=== PATIENT | female | born 1985 | race Caucasian/White ===

== ENCOUNTER 2016-10-18 21:49 | Emergency (ER) | payer OTHER ==
[2016-10-18 21:58] VITALS: TEMP 97.7; BMI 26.6
[2016-10-18 22:48] LABS: BASOPHIL 0.4 % (0-2.0); EOSINOPHIL 0.9 % (0-4.5); MCH 29.2 pg (25.7-33.7); MCHC 34.1 g/dl (32.0-36.0); MEAN CELL VOLUME 85.7 fl (80-96); MEAN PLT VOLUME 9.3 fl (7.5-11.1); NEUTROPHILS 66.4 % (42.8-82.8); PLATELET COUNT 256 K/MM3 (134-434); RDW 13.3 % (11.6-15.6); WHITE BLOOD COUNT 10.1 K/mm3 (4.0-10.0)
[2016-10-18 23:08] LABS: URINE APPEARANCE CLEAR; URINE BILIRUBIN NEGATIVE (NEGATIVE); URINE COLOR COLORLESS; URINE GLUCOSE (UA) NEGATIVE (NEGATIVE); URINE KETONE NEGATIVE (NEGATIVE); URINE NITRITE NEGATIVE (NEGATIVE); URINE PROTEIN NEGATIVE (NEGATIVE); URINE UROBILINOGEN NEGATIVE E.U./dl (0.2-1.0)
[2016-10-18 23:11] LABS: URINE BLOOD 2+ (NEGATIVE); URINE LEUK ESTERASE TRACE (NEGATIVE)
[2016-10-18 23:12] LABS: ANION GAP 12 (8-16); BILIRUBIN,TOTAL 0.2 mg/dL (0.2-1.0); CALCIUM 8.7 mg/dL (8.5-10.1); CO2 24 mmol/L (21-32); CREATININE 0.8 mg/dL (0.55-1.02); GLUCOSE,RANDOM 88 mg/dL (74-106); SGOT/AST 8 U/L (15-37); SGPT/ALT 18 U/L (12-78)
[2016-10-18 23:16] LABS: URINE BACTERIA RARE /hpf (NONE SEEN); URINE RBC <1 /hpf (0-3); URINE WBC 1 /hpf (3-5)
[2016-10-18 23:28] LABS: ALK PHOS 63 U/L (45-117)
--- NOTE | 2016-10-19 02:47 | PDOC ---
History of Present Illness - General Chief Complaint: Vaginal Bleeding Stated Complaint: VAGINAL BLEEDING Time Seen by Provider: 10/18/16 23:08 - History of Present Illness Initial Comments: 10/19/16 03:20 CHIEF COMPLAINT: vag bldg HISTORY OF PRESENT ILLNESS: A 31-year-old female presents to ED with vaginal bleeding since today. Patient states she is unsure how many weeks she has but her last menstrual period was in July, she states she has irregular periods so "I don't really know when I got ." Patient also states that she had a little bit of cramping this afternoon when she went to the bathroom she noticed some clots. She states the bleeding resolved little bit but she still continued to have bleeding throughout the day. No vomiting, diarrhea, fever, chills. No recent travel or sick contacts. PAST MEDICAL HISTORY: Denies past medical history FAMILY HISTORY: Denies SOCIAL HISTORY: Denies tobacco, alcohol, illicit drug use. SURGICAL HISTORY: Denies ALLERGIES: PCN REVIEW OF SYSTEMS General/Constitutional: Denies fever or chills. Denies weakness, weight change. HEENT: Denies change in vision. Denies ear pain or discharge. Denies sore throat. Cardiovascular: Denies chest pain or shortness of breath. Respiratory: Denies cough, wheezing, or hemoptysis. Gastrointestinal: Denies nausea, vomiting, diarrhea or constipation. Denies rectal bleeding. Genitourinary: Bleeding. Denies dysuria, frequency, or change in urination. Musculoskeletal: Denies joint or muscle swelling or pain. Denies neck or back pain. Skin and breasts: Denies rash or easy bruising. PHYSICAL EXAM General Appearance: Well-appearing, appropriately dressed. No apparent distress , no intoxication. HEENT: EOMI, PERRLA, normal ENT inspection, normal voice, TMs normal, pharynx normal. No conjunctival pallor. No photophobia, scleral icterus. Neck: Supple. Trachea midline. No tenderness, rigidity, carotid bruit, stridor , lymphadenopathy, or thyromegaly. Respiratory/Chest: Lungs CTAB. No shortness of breath, chest tenderness, respiratory distress, accessory muscle use. No crackles, rales, rhonchi, stridor , wheezing, dullness Cardiovascular: RRR. S1, S2. No JVD, murmur, bradycardia, tachycardia. Vascular Pulses: Dorsalis-Pedis (R): 2+, Dorsalis-Pedis (L): 2+ Gastrointestinal/Abdominal: Normal bowel sounds. Abdomen soft, non-distended. No tenderness or rebound tenderness. No organomegaly, pulsatile mass, guarding , hernia, hepatomegaly, splenomegaly. Pelvic: External genitalia normal without lesions. Vaginal vault with bloody discharge, 1 clot expelled during exam. Cervix is long and closed. No cervical motion tenderness. Uterus is nontender and normal in size. Adnexa are nontender and without masses. Lymphatic: No adenopathy, tenderness. Musculoskeletal/Extremities: Normal inspection. FROM of all extremities, normal capillary refill. Pelvis Stable. No CVA tenderness. No tenderness to extremities, pedal edema, swelling, erythema or deformity. Integumentary: Appropriate color, dry, warm. No cyanosis, erythema, jaundice or rash Neurologic: mill tender warm up II-XII intact. Fully oriented, alert. Appropriate mood/affect. Motor strength 5/5. No appreciable EOM palsy, facial droop or sensory deficit. 10/19/16 03:27 Past History - Past Medical History Allergies/Adverse Reactions: Allergies Allergy/AdvReac Type Severity Reaction Status Date / Time Penicillins Allergy Verified 10/18/16 21:54 Home Medications: Ambulatory Orders Levothyroxine [Synthroid -] 50 mcg PO DAILY 10/18/16 Asthma: No Cancer: No Cardiac Disorders: No Diabetes: No HTN: No Seizures: No Thyroid Disease: Yes - Surgical History Cholecystectomy: Yes - Reproductive History Is Patient Now?: Yes - Psycho/Social/Smoking Cessation Hx Anxiety: No Suicidal Ideation: No Smoking Status: No Smoking History: Never smoked Have you smoked in the past 12 months: No Number of Cigarettes Smoked Daily: 0 Hx Alcohol Use: No Drug/Substance Use Hx: No Substance Use Type: None Hx Substance Use Treatment: No *Physical Exam - Vital Signs Last Vital Signs Temp Pulse Resp BP Pulse Ox 97.7 F 86 18 107/78 98 10/18/16 21:57 10/18/16 21:57 10/18/16 21:57 10/18/16 21:57 10/18/16 21:57 ED Treatment Course - LABORATORY CBC & Chemistry Diagram: 10/18/16 22:41 10/18/16 22:41 - ADDITIONAL ORDERS Additional order review: Laboratory Results 10/18/16 10/18/16 10/18/16 22:41 22:31 22:31 Sodium 140 Potassium 3.7 Chloride 104 Carbon Dioxide 24 Anion Gap 12 BUN 16 D Creatinine 0.8 D Creat Clearance w eGFR > 60 Random Glucose 88 D Calcium 8.7 Total Bilirubin 0.2 D AST 8 L D ALT 18 D Alkaline Phosphatase 63 D Total Protein 7.0 Albumin 4.0 Beta HCG, Quant 4863.4 Urine Color Colorless Urine Appearance Clear Urine pH 6.0 Ur Specific [place] 1.004 Urine Protein Negative Urine Glucose (UA) Negative Urine Ketones Negative Urine Blood 2+ H Urine Nitrite Negative Urine Bilirubin Negative Urine Urobilinogen Negative Ur Leukocyte Esterase Trace H D Urine RBC <1 Urine WBC 1 Ur Epithelial Cells Rare Urine Bacteria Rare Blood Type O POSITIVE Antibody Screen Negative 10/18/16 22:41 RBC 4.16 MCV 85.7 MCHC 34.1 RDW 13.3 MPV 9.3 D Neutrophils % 66.4 Lymphocytes % 24.8 D Monocytes % 7.5 Eosinophils % 0.9 D Basophils % 0.4 - RADIOLOGY Radiology Studies Ordered: Category Date Time Status TRANSVAGINAL US PREG [US] Stat Ultrasound 10/19/16 00:01 Taken Medical Decision Making - Medical Decision Making 10/19/16 03:22 31-year-old female female presents to ED with vaginal bleeding since today. -CBC, CMP, T&S, beta hcg TV US PAtient blood type is O+, no indication for rhogam. Ultrasound results: Ultrasound :Uterus is anteverted and measures 10.2centimeters in length. There is an interstitial sac with debris with no discrete pole or yolk sac. Second additional sac is noted, possibly subcortically but possibly a second gestational sac.The right ovary measures 3.2centimeters in length and appears normal. The left ovary measures 2.1centimeters in length and appears normal. There is no significant free fluid. Pelvic duplex: There is normal arterial and venous flow in both ovaries. IMPRESSION: Gestational sac with debris no definite yolk sac or pole. Second smaller gestational sac versus a a focal subchorionic bleed. Recommend followup ultrasonography to evaluate for viability. Read by: Wili Liang MD Advised patient she must follow up with OB in 2 days for repeat blood test to evaluate progress of . Advised patient of signs and symptoms for return to ER; patient verbalized understanding and agrees to plan. 10/19/16 03:27 *DC/Admit/Observation/Transfer Diagnosis at time of Disposition: Threatened - Discharge Dispostion Disposition: HOME Admit: No - Referrals Referrals: Juan Hernandez MD [Primary Care Provider] - Lul Torre MD [Staff Physician] - - Patient Instructions Printed Discharge Instructions: DI for Threatened Additional Instructions: You must follow up with Dr. Loaiza in TWO DAYS as discussed for repeat blood test to further evaluate the progress of your . If you experience severe vaginal bleeding (more than one soaked pad an hour), persistent vomiting , severe pain to one side of your stomach, or any new or worsening symptoms, please return to the ER.
[2016-10-19 03:13] VITALS: BP 122/76; PULSE 83
[2016-10-19] MEDS ORDERED: ACETAMINOPHEN 325 MG TABLET (FP) ONE (03:18)
[2016-10-19] MEDS ORDERED: ACETAMINOPHEN 500 MG TABLET (FP) PO ONE (03:21)
== END 2016-10-19 03:23 | disposition home or self-care (01) ==
LOC: JER 21:49 → SUPCPDRO 21:49 → JER 10-19 03:23
DX: O20.0 Threatened abortion (principal); Z3A.00 Weeks of gestation of pregnancy not specified
CPT/HCPCS: 36415; 76817-TC; 80053; 81003; 81015; 84702; 85025; 86850; 86900; 86901; 99282-25

== ENCOUNTER 2016-10-19 23:26 | Emergency (ER) | payer OTHER ==
[2016-10-19 23:36] VITALS: BP 144/93; PULSE 80; TEMP 97.9; BMI 25.8
--- NOTE | 2016-10-20 00:11 | PDOC ---
History of Present Illness <RajeevYesicasara Wilson - Last Filed: 10/20/16 02:32> - History of Present Illness Initial Comments: 10/20/16 01:13 The patient is a 31 year old female, , with no significant past medical history, who presents to the emergency department for repeat Beta Hcg today after being seen in the ED yesterday for vaginal bleeding and abdominal cramping. She reports her Beta Hcg was 4863 yesterday with an ultrasound which demonstrated a threatened . The patient reports she has had continued bleeding today and reports the blood as thick, dark clots. The patient reports continued suprapubic pressure-pain and cramping. She denies chest pain, shortness of breath, headache and dizziness. She denies fever, chills, nausea, vomit, diarrhea and constipation. She denies dysuria, frequency, urgency and hematuria. Allergies: Penicillins Social history: denies toxic habits <Alicia Meyers - Last Filed: 10/20/16 02:34> - General Chief Complaint: Vaginal Bleeding Stated Complaint: VAGINAL BLEEDING Time Seen by Provider: 10/19/16 23:32 Past History - Past Medical History Asthma: No Cancer: No Cardiac Disorders: No Diabetes: No HTN: No Seizures: No Thyroid Disease: Yes - Surgical History Cholecystectomy: Yes - Psycho/Social/Smoking Cessation Hx Anxiety: No Suicidal Ideation: No Smoking Status: No Smoking History: Never smoked Have you smoked in the past 12 months: No Number of Cigarettes Smoked Daily: 0 Hx Alcohol Use: No Drug/Substance Use Hx: No Substance Use Type: None Hx Substance Use Treatment: No <RajeevYesicasara Wilson - Last Filed: 10/20/16 02:32> <Alicia Meyers - Last Filed: 10/20/16 02:34> - Past Medical History Allergies/Adverse Reactions: Allergies Allergy/AdvReac Type Severity Reaction Status Date / Time Penicillins Allergy Verified 10/18/16 21:54 Home Medications: Ambulatory Orders Levothyroxine [Synthroid -] 50 mcg PO DAILY 10/18/16 Review of Systems - Review of Systems Able to Perform ROS?: Yes Comments:: 10/20/16 01:13 CONSTITUTIONAL: Absent: fever, chills, diaphoresis, generalized weakness, malaise, loss of appetite HEENT: Absent: rhinorrhea, nasal congestion, throat pain, throat swelling, difficulty swallowing, mouth swelling, ear pain, eye pain, visual Changes CARDIOVASCULAR: Absent: chest pain, syncope, palpitations, irregular heart rate, lightheadedness , peripheral edema RESPIRATORY: Absent: cough, shortness of breath, dyspnea with exertion, orthopnea, wheezing, stridor, hemoptysis GASTROINTESTINAL: (+) abdominal pain Absent: abdominal distension, nausea, vomiting, diarrhea, constipation, melena, hematochezia GENITOURINARY: (+) vaginal bleeding in .Absent: dysuria, frequency, urgency, hesitancy , hematuria, flank pain, genital pain MUSCULOSKELETAL: Absent: myalgia, arthralgia, joint swelling SKIN: Absent: rash, itching, pallor HEMATOLOGIC/IMMUNOLOGIC: Absent: easy bleeding, easy bruising, lymphadenopathy, frequent infections ENDOCRINE: Absent: unexplained weight gain, unexplained weight loss, heat intolerance, cold intolerance NEUROLOGIC: Absent: headache, focal weakness or paresthesias, dizziness, unsteady gait, seizure, mental status changes, bladder or bowel incontinence PSYCHIATRIC: Absent: anxiety, depression, suicidal or homicidal ideation, hallucinations. <Alicia Meyers - Last Filed: 10/20/16 02:34> *Physical Exam - Vital Signs Last Vital Signs Temp Pulse Resp BP Pulse Ox 97.9 F 80 22 144/93 99 10/19/16 23:30 10/19/16 23:30 10/19/16 23:30 10/19/16 23:30 10/19/16 23:30 <Yesica Boo - Last Filed: 10/20/16 02:32> - Vital Signs Last Vital Signs Temp Pulse Resp BP Pulse Ox 97.9 F 80 22 144/93 99 10/19/16 23:30 10/19/16 23:30 10/19/16 23:30 10/19/16 23:30 10/19/16 23:30 - Physical Exam Comments: 10/20/16 01:14 GENERAL: Well developed, well nourished. Awake and alert. No acute distress. HEENT: Normocephalic, atraumatic. PERRLA, EOMI. No conjunctival pallor. Sclera are non- icteric. Moist mucous membranes. Oropharynx is clear. NECK: Supple. Full ROM. No JVD. Carotid pulses 2+ and symmetric, without bruits. No thyromegaly. No lymphadenopathy. CARDIOVASCULAR: Regular rate and rhythm. No murmurs, rubs, or gallops. Distal pulses are 2+ and symmetric. PULMONARY: No evidence of respiratory distress. Lungs clear to auscultation bilaterally. No wheezing, rales or rhonchi. ABDOMINAL: Soft. non-tender Non-distended. No rebound or guarding. No organomegaly. Normoactive bowel sounds. MUSCULOSKELETAL Normal range of motion at all joints. No bony deformities or tenderness. No CVA tenderness. EXTREMITIES: No cyanosis. No clubbing. No edema. No calf tenderness. SKIN: Warm and dry. Normal capillary refill. No rashes. No jaundice. NEUROLOGICAL: Alert, awake, appropriate. Cranial nerves 2-12 intact. Normoreflexic in the upper and lower extremities. Normal speech. Toes are down-going bilaterally. Gait is normal without ataxia. PSYCHIATRIC: Cooperative. Good eye contact. Appropriate mood and affect. <Alicia Meyers - Last Filed: 10/20/16 02:34> ED Treatment Course - RADIOLOGY Radiograph Interpretation: 10/20/16 02:33 EXAM: Ultrasound guidance a first trimester and pelvic duplex was read by Wili Liang MD at 02:20 INDICATION: Twin . The portion. DATE OF SERVICE: 2016-10-20 01:45:06.0 COMPARISON: 10/18/16 FINDINGS: Ultrasound :Uterus is anteverted and measures 10.6centimeters in length. 2 separate gestational sacs are noted with one sac sac being significantly larger but significantly smaller and irregular with debris. A second sac is also more irregular without clear contents.. There is no subchorionic bleed. The right ovary measures 4.1 x 2.2 x 2.3centimeters in length and appears normal. The left ovary measures 2.4 x 1.7 x 2.0centimeters in length and appears normal. There is no significant free fluid. Pelvic duplex : There is normal arterial and venous flow both ovaries. IMPRESSION: 2 irregular gestational sacs, one containing debris, without clear pole or yolk sac. Embryonic demise of both pregnancies is possible, but followup sonography and correlation with hCG levels is recommended. <Alicia Meyers - Last Filed: 10/20/16 02:34> Medical Decision Making - Medical Decision Making 10/20/16 02:30 31 yo female p/w pelvic cramping - -bhcg went down in 2 days from 4863 to 3499 blood type o positive pelvic US 2 irregular gestational sacs IMP threatened AB plan- followup with her siding mechanic <Yesica Boo - Last Filed: 10/20/16 02:32> *DC/Admit/Observation/Transfer <Yesica Boo - Last Filed: 10/20/16 02:32> - Attestations Scribe Attestion: 10/20/16 01:16 Documentation prepared by Alicia Meyers, acting as medical specialist for Yesica Boo MD <Alicia Meyers - Last Filed: 10/20/16 02:34> Diagnosis at time of Disposition: Threatened - Discharge Dispostion Disposition: HOME - Patient Instructions Printed Discharge Instructions: DI for Threatened Additional Instructions: please follow up with your siding mechanic
== END 2016-10-20 02:53 | disposition home or self-care (01) ==
LOC: JER 23:26
DX: O20.0 Threatened abortion (principal); Z3A.00 Weeks of gestation of pregnancy not specified
CPT/HCPCS: 36415; 76817-TC; 84702; 99281-25

== ENCOUNTER 2016-12-17 09:22 | Emergency (ER) | payer OTHER ==
[2016-12-17 09:26] VITALS: TEMP 98.2; BMI 25.0
--- NOTE | 2016-12-17 10:10 | PDOC ---
History of Present Illness - History of Present Illness Initial Comments: 12/17/16 10:19 The patient is a 31 year old female, , with a significant past medical history of hypothyroidism and recent miscarriage (October 2016), who presents to the emergency department for hypotension, chest pain, and intermittent shortness of breath for the past couple of days. She states her blood pressure was 96/65 this morning, but reports her blood pressure at baseline is around 106 /81. She reports her chest pain is localized to the left sternal border, which she states intermittently radiates around her ribs to her left upper back. She states her chest pain is exacerbated with certain movements and with palpation of her chest. She reports the pain is constant, however, is alleviated when she is still. The patient states that she woke up from her sleep last night due to her chest pain and also reports feeling as if her breaths were not allowing her to take in a sufficient amount of oxygen. The patient reports her LMP was , however, she states she had been bleeding for over a month after her miscarriage. She denies headache and dizziness. She denies fever, chills, nausea, vomit, diarrhea and constipation. She denies dysuria, frequency, urgency and hematuria. Allergies: Penicillins Social Hx: Denies toxic habits Surgical Hx: Gallstones removed (May 2017) PCP: Dr. Hernandez Keyboard Instrument Repairer: Dr. Avery <Alicia Meyers - Last Filed: 12/17/16 10:19> <Leila Franks - Last Filed: 12/19/16 11:04> - General Chief Complaint: Chest Pain Stated Complaint: SOB, CHEST PAIN Time Seen by Provider: 12/17/16 09:34 Past History <Alicia Meyers - Last Filed: 12/17/16 10:19> - Past Medical History Asthma: No Cancer: No Cardiac Disorders: No Diabetes: No HTN: No Seizures: No Thyroid Disease: Yes - Surgical History Cholecystectomy: Yes - Psycho/Social/Smoking Cessation Hx Anxiety: No Suicidal Ideation: No Smoking Status: No Smoking History: Never smoked Have you smoked in the past 12 months: No Number of Cigarettes Smoked Daily: 0 Information on smoking cessation initiated: No Hx Alcohol Use: No Drug/Substance Use Hx: No Substance Use Type: None Hx Substance Use Treatment: No <Leila Franks Last Filed: 12/19/16 11:04> - Past Medical History Allergies/Adverse Reactions: Allergies Allergy/AdvReac Type Severity Reaction Status Date / Time Penicillins Allergy Verified 10/18/16 21:54 Home Medications: Ambulatory Orders Levothyroxine [Synthroid -] 50 mcg PO DAILY 10/18/16 Ibuprofen [Motrin -] 600 mg PO TID PRN #21 tablet 12/17/16 Review of Systems - Review of Systems Able to Perform ROS?: Yes Comments:: 12/17/16 10:21 GENERAL/CONSTITUTIONAL: No fever or chills. No weakness. HEAD, EYES, EARS, NOSE AND THROAT: No change in vision. No ear pain or discharge. No sore throat. CARDIOVASCULAR: (+) chest pain, hypotension, and shortness of breath. RESPIRATORY: No cough, wheezing, or hemoptysis. GASTROINTESTINAL: No nausea, vomiting, diarrhea or constipation. GENITOURINARY: No dysuria, frequency, or change in urination. MUSCULOSKELETAL: No joint or muscle swelling or pain. No neck or back pain. SKIN: No rash NEUROLOGIC: No headache, vertigo, loss of consciousness, or change in strength/ sensation. ENDOCRINE: No increased thirst. No abnormal weight change. HEMATOLOGIC/LYMPHATIC: No anemia, easy bleeding, or history of blood clots. ALLERGIC/IMMUNOLOGIC: No hives or skin allergy. <Alicia Meyers - Last Filed: 12/17/16 10:19> *Physical Exam - Vital Signs Last Vital Signs Temp Pulse Resp BP Pulse Ox 98.2 F 71 18 120/75 100 12/17/16 09:24 12/17/16 09:24 12/17/16 09:24 12/17/16 09:24 12/17/16 09:24 - Physical Exam Comments: 12/17/16 10:22 GENERAL: Awake, alert, and fully oriented, in no acute distress HEAD: No signs of trauma EYES: PERRLA, EOMI, sclera anicteric, conjunctiva clear ENT: Auricles normal inspection, hearing grossly normal, nares patent, oropharynx clear without exudates. Moist mucosa NECK: Normal ROM, supple, no lymphadenopathy, JVD, or masses LUNGS: (+) point tenderness to palpation to costosternal junction around T5. Breath sounds equal, clear to auscultation bilaterally. No wheezes, and no crackles HEART: Regular rate and rhythm, normal S1 and S2, no murmurs, rubs or gallops ABDOMEN: Soft, nontender, normoactive bowel sounds. No guarding, no rebound. No masses EXTREMITIES: Normal range of motion, no edema. No clubbing or cyanosis. No cords, erythema, or tenderness NEUROLOGICAL: Cranial nerves II through XII grossly intact. Normal speech, normal gait SKIN: Warm, Dry, normal turgor, no rashes or lesions noted. <Alicia Meyers - Last Filed: 12/17/16 10:19> - Vital Signs Last Vital Signs Temp Pulse Resp BP Pulse Ox 98.2 F 71 18 120/75 100 12/17/16 09:24 12/17/16 09:24 12/17/16 09:24 12/17/16 09:24 12/17/16 09:24 <Leila Franks - Last Filed: 12/19/16 11:04> Heart Score/ECG Review - ECG Impressions Comment:: EKG rad 09:42- NSR 73 bpm, no acute ST/T changes <Leila Franks - Last Filed: 12/19/16 11:04> ED Treatment Course - LABORATORY CBC & Chemistry Diagram: 12/17/16 11:50 12/17/16 10:19 <Leila Franks - Last Filed: 12/19/16 11:04> Medical Decision Making - Medical Decision Making Pt presented with atypical chest pain, reproducible at the costochondral junction on the L side. Low risk for PE by evaluation and D-dimer was negative. CE neg x1. No acute findings on CXR. Pt received toradol with partial relief of symptoms. We discussed other pain medications, which she declined, as she has a child to care for and does not want the sedative effects. Will f/u with her PMD and continue NSAIDs for pain. <Leila Franks - Last Filed: 12/19/16 11:04> *DC/Admit/Observation/Transfer - Attestations Scribe Attestion: 12/17/16 10:23 Documentation prepared by Alicia Meyers, acting as medical insurance verifier for Leila Franks MD <Alicia Meyers - Last Filed: 12/17/16 10:19> - Discharge Dispostion Admit: No <Leila Franks - Last Filed: 12/19/16 11:04> Diagnosis at time of Disposition: Chest pain Qualifiers: Chest pain type: unspecified Qualified Code(s): R07.9 - Chest pain, unspecified - Discharge Dispostion Disposition: HOME Condition at time of disposition: Stable - Prescriptions Prescriptions: Ibuprofen [Motrin -] 600 mg PO TID PRN #21 tablet PRN Reason: Pain - Referrals Referrals: Juan Hernandez MD [Primary Care Provider] - - Patient Instructions Printed Discharge Instructions: DI for Atypical Chest Pain, DI for Costochondritis
[2016-12-17 11:01] LABS: URINE APPEARANCE CLEAR; URINE BILIRUBIN NEGATIVE (NEGATIVE); URINE COLOR STRAW; URINE GLUCOSE (UA) NEGATIVE (NEGATIVE); URINE KETONE NEGATIVE (NEGATIVE); URINE LEUK ESTERASE NEGATIVE (NEGATIVE); URINE NITRITE NEGATIVE (NEGATIVE); URINE PROTEIN NEGATIVE (NEGATIVE); URINE UROBILINOGEN NEGATIVE E.U./dl (0.2-1.0)
[2016-12-17 11:06] LABS: ALBUMIN 4.2 g/dl (3.4-5.0); ANION GAP 7 (8-16); CALCIUM 9.2 mg/dL (8.5-10.1); CO2 28 mmol/L (21-32); CREATININE 0.7 mg/dL (0.55-1.02); GLUCOSE,RANDOM 83 mg/dL (74-106); SGPT/ALT 21 U/L (12-78); TOT PROT 7.4 g/dl (6.4-8.2)
[2016-12-17 11:09] LABS: ALK PHOS 59 U/L (45-117); TROPONIN I < 0.02 ng/ml (0.00-0.05)
[2016-12-17 11:11] LABS: SGOT/AST 32 U/L (15-37)
[2016-12-17 11:17] LABS: URINE BLOOD 2+ (NEGATIVE)
[2016-12-17 11:39] LABS: URINE RBC 1 /hpf (0-3)
[2016-12-17 11:57] LABS: BASOPHIL 0.8 % (0-2.0); EOSINOPHIL 1.1 % (0-4.5); MCH 29.7 pg (25.7-33.7); MCHC 34.3 g/dl (32.0-36.0); MEAN CELL VOLUME 86.8 fl (80-96); MEAN PLT VOLUME 9.8 fl (7.5-11.1); NEUTROPHILS 55.2 % (42.8-82.8); PLATELET COUNT 261 K/MM3 (134-434); RDW 13.3 % (11.6-15.6)
[2016-12-17] MEDS ORDERED: KETOROLAC TROMETHAMINE 30 MG/1 ML VIAL IVPUSH ONE (12:06)
[2016-12-17] MEDS ORDERED: KETOROLAC TROMETHAMINE 30 MG/1 ML VIAL ONE (12:09)
--- NOTE | 2016-12-17 13:13 | EKG ---
Test Reason : Blood Pressure : / mmHG Vent. Rate : 073 BPM Atrial Rate : 073 BPM P-R Int : 140 ms QRS Dur : 090 ms QT Int : 376 ms P-R-T Axes : 037 046 034 degrees QTc Int : 414 ms NORMAL SINUS RHYTHM NORMAL ECG NO PREVIOUS ECGS AVAILABLE Confirmed by KELLIE MAJANO, DEVEN ([id number]) on 12/17/2016 1:13:12 PM Referred By: Confirmed By:DEVEN HOPKINS MD
[2016-12-17 14:30] VITALS: BP 116/74; PULSE 75
== END 2016-12-17 14:29 | disposition home or self-care (01) ==
LOC: JER 09:22
PROC: 3E0333Z Introduction of Anti-inflammatory into Peripheral Vein, Percutaneous Approach (ICD-10-PCS; principal; 2016-12-17)
DX: R07.89 Other chest pain (principal)
CPT/HCPCS: 36415; 71020-TC; 80053; 81003; 81015; 82550; 82553; 84484; 84703; 85025; 85379; 93005; 93010; 99285-25

== ENCOUNTER 2016-12-29 17:33 | Emergency (ER) | payer OTHER ==
[2016-12-29 17:42] VITALS: BP 98/66; PULSE 83; TEMP 98.1; BMI 25.2
--- NOTE | 2016-12-29 18:06 | PDOC ---
History of Present Illness - General Chief Complaint: Vaginal Bleeding Stated Complaint: PCP SENT/VAGINAL BLEEDING Time Seen by Provider: 12/29/16 17:45 - History of Present Illness Initial Comments: 12/29/16 18:06 CHIEF COMPLAINT: vaginal bleeding HISTORY OF PRESENT ILLNESS: 31 yo F with hx of hypothyroidism and recent miscarriage (Oct 2016) sent from OB's office for syncopal episode and excessive vaginal bleeding. Patient reports she has "run out of an entire pack of pads" in one hour and the bleeding is with big clots. She also complains of dizziness yesrerday No recent travel or sick contacts. PAST MEDICAL HISTORY: as per HPI FAMILY HISTORY: Denies SOCIAL HISTORY: Denies tobacco, alcohol, illicit drug use. SURGICAL HISTORY: Denies ALLERGIES: No known drug allergies REVIEW OF SYSTEMS General/Constitutional: Denies fever or chills. Denies weakness, weight change. HEENT: Denies change in vision. Denies ear pain or discharge. Denies sore throat. Cardiovascular: Denies chest pain or shortness of breath. Respiratory: Denies cough, wheezing, or hemoptysis. Gastrointestinal: Denies nausea, vomiting, diarrhea or constipation. Denies rectal bleeding. Genitourinary: Denies dysuria, frequency, or change in urination. Musculoskeletal: Denies joint or muscle swelling or pain. Denies neck or back pain. Skin and breasts: Denies rash or easy bruising. Neurologic: Dizziness x 2 days. PHYSICAL EXAM General Appearance: Well-appearing, appropriately dressed. No apparent distress , no intoxication. HEENT: EOMI, PERRLA, normal ENT inspection, normal voice, TMs normal, pharynx normal. No conjunctival pallor. No photophobia, scleral icterus. Neck: Supple. Trachea midline. No tenderness, rigidity, carotid bruit, stridor , lymphadenopathy, or thyromegaly. Respiratory/Chest: Lungs CTAB. No shortness of breath, chest tenderness, respiratory distress, accessory muscle use. No crackles, rales, rhonchi, stridor , wheezing, dullness Cardiovascular: RRR. S1, S2. No JVD, murmur, bradycardia, tachycardia. Vascular Pulses: Dorsalis-Pedis (R): 2+, Dorsalis-Pedis (L): 2+ Gastrointestinal/Abdominal: Normal bowel sounds. Abdomen soft, non-distended. No tenderness or rebound tenderness. No organomegaly, pulsatile mass, guarding , hernia, hepatomegaly, splenomegaly. Lymphatic: No adenopathy, tenderness. Musculoskeletal/Extremities: Normal inspection. FROM of all extremities, normal capillary refill. Pelvis Stable. No CVA tenderness. No tenderness to extremities, pedal edema, swelling, erythema or deformity. Integumentary: Appropriate color, dry, warm. No cyanosis, erythema, jaundice or rash Neurologic: energy engineer II-XII intact. Fully oriented, alert. Appropriate mood/affect. Motor strength 5/5. No appreciable EOM palsy, facial droop or sensory deficit. 12/29/16 18:07 12/29/16 18:48 Past History - Past Medical History Allergies/Adverse Reactions: Allergies Allergy/AdvReac Type Severity Reaction Status Date / Time Penicillins Allergy Verified 12/29/16 17:35 Home Medications: Ambulatory Orders Levothyroxine [Synthroid -] 50 mcg PO DAILY 10/18/16 Ferrous Gluconate [Iron] 256 mg PO DAILY 12/31/16 Ibuprofen [Motrin -] 600 mg PO QID #28 tablet 12/31/16 Asthma: No Cancer: No Cardiac Disorders: No Diabetes: No HTN: No Seizures: No Thyroid Disease: Yes - Surgical History Cholecystectomy: Yes - Psycho/Social/Smoking Cessation Hx Anxiety: No Suicidal Ideation: No Smoking Status: No Smoking History: Never smoked Have you smoked in the past 12 months: No Number of Cigarettes Smoked Daily: 0 Hx Alcohol Use: No Drug/Substance Use Hx: No Substance Use Type: None Hx Substance Use Treatment: No *Physical Exam - Vital Signs Last Vital Signs Temp Pulse Resp BP Pulse Ox 98.1 F 83 19 98/66 100 12/29/16 17:35 12/29/16 17:35 12/29/16 17:35 12/29/16 17:35 12/29/16 17:35 ED Treatment Course - LABORATORY CBC & Chemistry Diagram: 12/29/16 18:23 12/29/16 18:23 - RADIOLOGY Radiology Studies Ordered: Category Date Time Status TRANSVAGINAL ULTRASOUND US [US] Stat Ultrasound 12/29/16 17:53 Ordered *DC/Admit/Observation/Transfer Diagnosis at time of Disposition: Dysfunctional uterine bleeding Anemia Qualifiers: Anemia type: iron deficiency Iron deficiency anemia type: chronic blood loss Qualified Code(s): D50.0 - Iron deficiency anemia secondary to blood loss ( chronic) - Discharge Dispostion Disposition: HOME - Referrals Referrals: Juan Hernandez MD [Primary Care Provider] - Renan Villalpando MD [Staff Physician] - - Patient Instructions Printed Discharge Instructions: DI for Vaginal Bleeding Additional Instructions: return to the ER if you are soaking through 2 pads per hour, severe abdominal pain or fever take micronor as prescribed. follow up with bolt maker as soon as possible. - Post Discharge Activity Work/School Note: Back to Work
[2016-12-29 18:37] LABS: URINE APPEARANCE CLEAR; URINE BILIRUBIN NEGATIVE (NEGATIVE); URINE COLOR LTYELLOW; URINE GLUCOSE (UA) NEGATIVE (NEGATIVE); URINE KETONE NEGATIVE (NEGATIVE); URINE LEUK ESTERASE NEGATIVE (NEGATIVE); URINE NITRITE NEGATIVE (NEGATIVE); URINE PROTEIN NEGATIVE (NEGATIVE); URINE UROBILINOGEN NEGATIVE E.U./dl (0.2-1.0)
[2016-12-29 18:38] LABS: BASOPHIL 0.6 % (0-2.0); EOSINOPHIL 1.1 % (0-4.5); MCH 28.6 pg (25.7-33.7); MCHC 33.1 g/dl (32.0-36.0); MEAN CELL VOLUME 86.5 fl (80-96); MEAN PLT VOLUME 10.1 fl (7.5-11.1); NEUTROPHILS 64.5 % (42.8-82.8); PLATELET COUNT 266 K/MM3 (134-434); RDW 12.8 % (11.6-15.6); WHITE BLOOD COUNT 6.7 K/mm3 (4.0-10.0)
[2016-12-29 18:41] LABS: URINE BLOOD 1+ (NEGATIVE)
[2016-12-29 18:43] LABS: URINE MUCUS RARE; URINE RBC 6 /hpf (0-3); URINE WBC 2 /hpf (3-5)
[2016-12-29 19:00] LABS: INR 1.19 (0.82-1.09); PROTHROMBIN TIME (PATIENT) 13.1 SEC (9.98-11.88)
[2016-12-29] MEDS ORDERED: SODIUM CHLORIDE 1,000 ML IV STA (19:31)
--- NOTE | 2016-12-29 19:31 | PDOC ---
*Physical Exam - Vital Signs Last Vital Signs Temp Pulse Resp BP Pulse Ox 98.1 F 83 19 98/66 100 12/29/16 17:35 12/29/16 17:35 12/29/16 17:35 12/29/16 17:35 12/29/16 17:35 - Physical Exam General Appearance: Yes: Appropriately Dressed Respiratory/Chest: positive: Lungs Clear, Normal Breath Sounds Cardiovascular: positive: Regular Rate Female Pelvic Exam: positive: normal external exam, cervical os closed, other ( bleeding in vaginal vault) Gastrointestinal/Abdominal: positive: Normal Bowel Sounds, Soft Extremity: positive: Normal Capillary Refill, Normal Inspection Integumentary: positive: Dry, Warm, Pale Neurologic: positive: Fully Oriented, Alert ED Treatment Course - LABORATORY CBC & Chemistry Diagram: 12/29/16 18:23 12/29/16 18:23 - ADDITIONAL ORDERS Additional order review: Laboratory Results 12/29/16 12/29/16 18:23 18:23 INR 1.19 H Urine Color Ltyellow Urine Appearance Clear Urine pH 5.0 D Ur Specific [place] 1.020 Urine Protein Negative Urine Glucose (UA) Negative Urine Ketones Negative Urine Blood 1+ H Urine Nitrite Negative Urine Bilirubin Negative Urine Urobilinogen Negative Ur Leukocyte Esterase Negative Urine RBC 6 Urine WBC 2 Ur Epithelial Cells Rare Urine Mucus Rare 12/29/16 18:23 RBC 3.34 L D MCV 86.5 MCHC 33.1 RDW 12.8 MPV 10.1 Neutrophils % 64.5 Lymphocytes % 27.1 D Monocytes % 6.7 Eosinophils % 1.1 Basophils % 0.6 Medical Decision Making - Medical Decision Making 12/29/16 21:[address] Tamayo recommends repeat transvaginal u/s to check endometrium measurement. miconor and outpatient gynaecological oncologist follow up. patient cleared for discharge by gynaecological oncologist. strict return precautions reviewed with patient. *DC/Admit/Observation/Transfer Diagnosis at time of Disposition: Dysfunctional uterine bleeding Anemia Qualifiers: Anemia type: iron deficiency Iron deficiency anemia type: chronic blood loss Qualified Code(s): D50.0 - Iron deficiency anemia secondary to blood loss ( chronic) - Discharge Dispostion Disposition: HOME - Referrals Referrals: Juan Hernandez MD [Primary Care Provider] - Renan Villalpando MD [Staff Physician] - - Patient Instructions Printed Discharge Instructions: DI for Vaginal Bleeding Additional Instructions: return to the ER if you are soaking through 2 pads per hour, severe abdominal pain or fever take micronor as prescribed. follow up with gynaecological oncologist as soon as possible. - Post Discharge Activity Work/School Note: Back to Work
[2016-12-29 19:38] LABS: CREATININE 0.7 mg/dL (0.55-1.02); GLUCOSE,RANDOM 94 mg/dL (74-106)
[2016-12-29 19:39] LABS: ALBUMIN 3.9 g/dl (3.4-5.0); ANION GAP 10 (8-16); CALCIUM 8.4 mg/dL (8.5-10.1); CO2 26 mmol/L (21-32); SGOT/AST 13 U/L (15-37); SGPT/ALT 20 U/L (12-78)
[2016-12-29 19:44] LABS: ALK PHOS 59 U/L (45-117); BILIRUBIN,TOTAL 0.3 mg/dL (0.2-1.0); TOT PROT 6.8 g/dl (6.4-8.2)
--- NOTE | 2016-12-29 23:07 | PN ---
Progress Note, Physician Chief Complaint: 31 yo P[address] Villalpando today in the office has sever vaginal bleeding sent for ER evaluation She had SAB of twins @ 8wk since than bleeding on/off - Current Medication List Current Medications: Levothyroxine 75mcg - Objective Vital Signs: Vital Signs Temperature 98.1 F 12/29/16 17:35 Pulse Rate 83 12/29/16 17:35 Respiratory Rate 19 12/29/16 17:35 Blood Pressure 98/66 12/29/16 17:35 O2 Sat by Pulse Oximetry (%) 100 12/29/16 17:35 Constitutional: Yes: Well Nourished Eyes: Yes: WNL HENT: Yes: WNL Neck: Yes: WNL Cardiovascular: Yes: WNL Respiratory: Yes: WNL Gastrointestinal: Yes: WNL Genitourinary: Yes: WNL (old clot in the valt, no active bleeding External os open, internal os closed no fundal or adnexal tenderness) Musculoskeletal: Yes: WNL Extremities: Yes: WNL Edema: No Integumentary: Yes: WNL Neurological: Yes: WNL ...Motor Strength: WNL Psychiatric: Yes: WNL Labs: CBC, BMP 12/29/16 18:23 12/29/16 18:23 INR, PTT INR 1.19 (0.82-1.09) H 12/29/16 18:23 - ....Imaging Ultrasound: Report Reviewed (small clot 1.5cm at the fundus, nl adnexa, no free fluid) Assessment/Plan 31 yo P3 with abnormal bleed since October, drop in HCT now stable, no active bleeding, no dizziness or pulpitations Cardiovascular evaluation wnl Start Norethindrone Schedule for D&C in the office on 01/02/17 Patient fully instructed
--- NOTE | 2016-12-30 22:56 | EKG ---
Test Reason : Blood Pressure : / mmHG Vent. Rate : 075 BPM Atrial Rate : 075 BPM P-R Int : 156 ms QRS Dur : 086 ms QT Int : 394 ms P-R-T Axes : 070 067 046 degrees QTc Int : 439 ms NORMAL SINUS RHYTHM NORMAL ECG WHEN COMPARED WITH ECG OF 17-DEC-2016 09:37, NO SIGNIFICANT CHANGE WAS FOUND Confirmed by BYRON TELLEZ MD ([id number]) on 12/30/2016 10:55:58 PM Referred By: Confirmed By:BYRON TELLEZ MD
== END 2016-12-29 22:58 | disposition home or self-care (01) ==
LOC: JER 17:33
PROC: 3E0337Z Introduction of Electrolytic and Water Balance Substance into Peripheral Vein, Percutaneous Approach (ICD-10-PCS; principal; 2016-12-29)
DX: N93.8 Other specified abnormal uterine and vaginal bleeding (principal); D50.0 Iron deficiency anemia secondary to blood loss (chronic)
CPT/HCPCS: 36415; 71020-TC; 76830-TC; 80053; 81003; 81015; 84702; 85025; 85610; 86850; 86900; 86901; 87086; 93005; 93010; 99284-25

== ENCOUNTER 2016-12-31 08:49 | Day surgery (SDC) | payer OTHER ==
[2016-12-31 09:29] VITALS: BMI 25.2
[2016-12-31] MEDS ORDERED: MIDAZOLAM HCL 2 MG/2 ML SINGLE DOSE VIAL ONE (11:06)
[2016-12-31] MEDS ORDERED: PROPOFOL 20 ML ONE ×2 (11:06)
--- NOTE | 2016-12-31 11:17 | HP ---
Past Medical History - Primary Care Physician PCP:: Lul Torre - Admission Chief Complaint: vaginal bleeding, anemia History of Present Illness: 31 yo f with previous hx of spont. ab twins , had normal period 2 weeks ago , now has heavy vaginal bleeding with blood clots . anemia, sono showed small cystic area in EM cavty admitted for suction curettage. rba discussed, risk of infection, bleeding, perforation, scaring , anesthesia risks discussed History Source: Patient Limitations to Obtaining History: No Limitations - Past Medical History Heme/Onc: Yes: Anemia Endocrine: Yes: Hypothyroidism - Past Surgical History Hx Myomectomy: No Hx Transabdominal Cerclage: No - Smoking History Smoking history: Never smoked Have you smoked in the past 12 months: No Aproximately how many cigarettes per day: 0 - Alcohol/Substance Use Hx Alcohol Use: No History of Substance Use: reports: None - Social History Usual Living Arrangement: Yes: With Spouse History of Recent Travel: No Home Medications - Allergies Allergies/Adverse Reactions: Allergies Allergy/AdvReac Type Severity Reaction Status Date / Time Penicillins Allergy Verified 12/31/16 09:20 - Home Medications Home Medications: Ambulatory Orders Levothyroxine [Synthroid -] 50 mcg PO DAILY 10/18/16 Ferrous Gluconate [Iron] 256 mg PO DAILY 12/31/16 Review of Systems - Review of Systems Constitutional: reports: Weakness Eyes: reports: No Symptoms HENT: reports: No Symptoms Neck: reports: No Symptoms Respiratory: reports: No Symptoms Gastrointestinal: reports: No Symptoms Genitourinary: reports: No Symptoms Breasts: reports: No Symptoms Reported Musculoskeletal: reports: No Symptoms Integumentary: reports: No Symptoms Neurological: reports: No Symptoms Endocrine: reports: No Symptoms Hematology/Lymphatic: reports: No Symptoms Psychiatric: reports: No Symptoms Physical Exam-KEYLINER Vital Signs: Vital Signs Temperature 97.9 F 12/31/16 09:29 Pulse Rate 79 12/31/16 09:29 Respiratory Rate 16 12/31/16 09:29 Blood Pressure 125/66 12/31/16 09:29 O2 Sat by Pulse Oximetry (%) 100 12/31/16 09:29 Constitutional: Yes: Well Nourished, No Distress, Calm Eyes: Yes: WNL, Conjunctiva Clear, EOM Intact HENT: Yes: WNL, Atraumatic, Normocephalic Neck: Yes: WNL, Supple, Trachea Midline Cardiovascular: Yes: WNL, Regular Rate and Rhythm Respiratory: Yes: WNL, Regular, CTA Bilaterally Gastrointestinal: Yes: WNL ...Rectal Exam: Yes: WNL Renal/: Yes: WNL External Genitalia: Yes: Normal Vaginal Exam: Yes: Bleeding Cervix: Yes: Normal Uterus: Yes: Normal, Anteverted Adnexa: Not Palpable: Left, Right Breast(s): Yes: WNL Musculoskeletal: Yes: WNL Extremities: Yes: WNL Integumentary: Yes: WNL Neurological: Yes: WNL, Alert, Oriented ...Motor Strength: WNL Psychiatric: Yes: WNL, Alert, Oriented Assessment/Plan plan in view of anemia,continued vaginal bleeding . cystic area in EM advised suction curettage
[2016-12-31] MEDS ORDERED: ceFAZolin SODIUM 1 GM VIAL IVPB ONE (11:32)
[2016-12-31] MEDS ORDERED: oxyCODONE HCL 5 MG TABLET PO PRN ×2 (11:54→11:56)
[2016-12-31] MEDS ORDERED: ONDANSETRON 4 MG/2 ML VIAL IVPUSH PRN (11:54)
[2016-12-31] MEDS ORDERED: ACETAMINOPHEN 1000 MG/100 ML VIAL (NON FORMULARY) IVPB PRN (11:55)
[2016-12-31] MEDS ORDERED: IBUPROFEN 800 MG/8 ML IJ IVPB PRN (11:56)
[2016-12-31] MEDS ORDERED: IBUPROFEN 600 MG TABLET (FP) PO PRN (11:56)
[2016-12-31] MEDS ORDERED: ONDANSETRON 4 MG/2 ML VIAL IVPB PRN (11:56)
[2016-12-31] MEDS ORDERED: LACTATED RINGERS SOLUTION 1,000 ML IV SCH (12:00)
[2016-12-31] MEDS ORDERED: ELECTROLYTE-148 SOLN 1,000 ML IV SCH (12:00)
[2016-12-31 13:40] VITALS: TEMP 98.6
[2016-12-31 17:10] VITALS: BP 105/60; PULSE 88
[2017-01-01] MEDS ORDERED: LEVOTHYROXINE NA 50 MCG TABLET (FP) PO SCH (07:00)
[2017-01-01] MEDS ORDERED: FERROUS GLUCONATE 324 MG TAB (FP) PO SCH (10:00)
--- NOTE | 2017-01-01 12:00 | OP ---
DATE OF OPERATION: 12/31/2016 PREOPERATIVE DIAGNOSIS: Menometrorrhagia, rule out retained products of conception. POSTOPERATIVE DIAGNOSIS: Menometrorrhagia, rule out retained products of conception, pending pathology. PROCEDURE: Suction curettage. SURGEON: Lul Torre MD ANESTHESIA: General. ESTIMATED BLOOD LOSS: 50 mL. OPERATION: The patient was taken to the operating room, and under adequate general anesthesia, examination under anesthesia revealed external genitalia to be normal. Vagina had a small amount of blood in the vault. Cervix was closed with a small amount of bleeding. Uterus was normal-sized, anteverted. Adnexa, no masses were palpable. Then, with a weighted speculum in the vagina, anterior lip of the cervix was grasped with a single-tooth tenaculum. Cervix was gradually dilated with Hegar dilator without any difficulties. Suction curette was inserted into the uterine cavity, and the content was suctioned. Then, polyp forceps was introduced, and then, no more tissue was found. Patient tolerated the procedure well, left the OR in good condition. LUL TORRE M.D. [id number]
== END 2016-12-31 15:40 | disposition home or self-care (01) ==
LOC: JASU-SURG 08:49
PROVIDERS: ATTEND Obstetrics & Gynecology
PROC: 0UDB7ZX Extraction of Endometrium, Via Natural or Artificial Opening, Diagnostic (ICD-10-PCS; principal; 2016-12-31 11:00)
DX: N92.1 Excessive and frequent menstruation with irregular cycle (principal)
CPT/HCPCS: 88305-TC; 94760

== ENCOUNTER 2017-04-21 16:52 | Emergency (ER) | payer OTHER ==
[2017-04-21 17:03] VITALS: TEMP 98; BMI 21.6
--- NOTE | 2017-04-21 17:16 | PDOC ---
History of Present Illness - General History Source: Patient Exam Limitations: No Limitations - History of Present Illness Initial Comments: 04/21/17 17:54 The patient is a 31 year old female, with a significant past medical history of hypothyroidism who presents to the emergency department with abdominal pain, nausea, and vomiting. The patient reports just returning from [facility] about 2 months returning on 04/17/2017. The patient reports about 2 days after returning becoming symptomatic, noting the development of fevers (about 101), nausea, vomiting, abdominal pain, and diarrhea. She reports having multiple episodes of vomiting and diarrhea since the original onset of her symptoms. The patient also endorses feeling weak, dry, and lightheaded. She also notes her daughter having similar symptoms. She denies recent chills, headache or dizziness. She denies any vaginal discharge. She denies recent dysuria, frequency, urgency or hematuria. She denies recent chest pain or shortness of breath. Allergies: NKA Past surgical history: None reported. Social history: Nonsmoker. Denies EtOH use and recreational drug use. Primary Care Physician: <Kaveh Zendejas - Last Filed: 04/21/17 17:55> <Susan Hodges - Last Filed: 04/23/17 21:03> - General Chief Complaint: Rectal Bleed Stated Complaint: VOMITING/DIARRHEA Time Seen by Provider: 04/21/17 17:16 Past History <Kaveh Zendejas - Last Filed: 04/21/17 17:55> - Past Medical History Anemia: Yes Asthma: No Cancer: No Cardiac Disorders: No CVA: No COPD: No CHF: No Dementia: No Diabetes: No GI Disorders: No Disorders: No HTN: No Hypercholesterolemia: No Liver Disease: No Seizures: No Thyroid Disease: Yes (hypo) - Surgical History Cholecystectomy: Yes Orthopedic Surgery: No - Psycho/Social/Smoking Cessation Hx Anxiety: No Suicidal Ideation: No Smoking Status: No Smoking History: Never smoked Have you smoked in the past 12 months: No Number of Cigarettes Smoked Daily: 0 Information on smoking cessation initiated: No Hx Alcohol Use: No Drug/Substance Use Hx: No Substance Use Type: None Hx Substance Use Treatment: No <Susan Hodges - Last Filed: 04/23/17 21:03> - Past Medical History Allergies/Adverse Reactions: Allergies Allergy/AdvReac Type Severity Reaction Status Date / Time Penicillins Allergy Verified 04/22/17 17:32 Home Medications: Ambulatory Orders Levothyroxine [Synthroid -] 50 mcg PO DAILY 10/18/16 Sulfamethoxazole/Trimethoprim [Bactrim Ds -] 1 tab PO BID 04/21/17 Levofloxacin [Levaquin -] 500 mg PO DAILY #7 tablet 04/23/17 Metronidazole [Flagyl] 500 mg PO BID #14 tablet 04/23/17 Review of Systems - Review of Systems Able to Perform ROS?: Yes Comments:: 04/21/17 17:43 GENERAL/CONSTITUTIONAL: +fever +weakness. HEAD, EYES, EARS, NOSE AND THROAT: No change in vision. No ear pain or discharge. No sore throat. CARDIOVASCULAR: No chest pain or shortness of breath. RESPIRATORY: No cough, wheezing, or hemoptysis. GASTROINTESTINAL: +abdominal pain, nausea, vomiting, diarrhea, black tarry stool. No: constipation. GENITOURINARY: No dysuria, frequency, or change in urination. MUSCULOSKELETAL: No joint or muscle swelling or pain. No neck or back pain. SKIN: No rash NEUROLOGIC: No headache, vertigo, loss of consciousness, or change in strength/ sensation. ENDOCRINE: No increased thirst. No abnormal weight change. HEMATOLOGIC/LYMPHATIC: No anemia, easy bleeding, or history of blood clots. ALLERGIC/IMMUNOLOGIC: No hives or skin allergy. <Kaveh Zendejas - Last Filed: 04/21/17 17:55> *Physical Exam - Vital Signs Last Vital Signs Temp Pulse Resp BP Pulse Ox 98.0 F 87 17 110/67 99 04/21/17 16:59 04/21/17 16:59 04/21/17 16:59 04/21/17 16:59 04/21/17 16:59 - Physical Exam Comments: 04/21/17 17:55 GENERAL: Awake, alert, and fully oriented, in no acute distress HEAD: No signs of trauma EYES: PERRLA, EOMI, sclera anicteric, conjunctiva clear ENT: Auricles normal inspection, hearing grossly normal, nares patent, oropharynx clear without exudates. Moist mucosa NECK: Normal ROM, supple, no lymphadenopathy, JVD, or masses LUNGS: Breath sounds equal, clear to auscultation bilaterally. No wheezes, and no crackles HEART: Regular rate and rhythm, normal S1 and S2, no murmurs, rubs or gallops ABDOMEN: Soft, mild LUQ tenderness to deep palpation, normoactive bowel sounds. No guarding, no rebound. No masses EXTREMITIES: Normal range of motion, no edema. No clubbing or cyanosis. No cords, erythema, or tenderness NEUROLOGICAL: Cranial nerves II through XII grossly intact. Normal speech, normal gait SKIN: Warm, Dry, normal turgor, no rashes or lesions noted. <Kaveh Zendejas - Last Filed: 04/21/17 17:55> - Vital Signs Last Vital Signs Temp Pulse Resp BP Pulse Ox 98.0 F 87 17 110/67 99 04/21/17 16:59 04/21/17 16:59 04/21/17 16:59 04/21/17 16:59 04/21/17 16:59 <Susan Hodges - Last Filed: 04/23/17 21:03> ED Treatment Course - LABORATORY CBC & Chemistry Diagram: 04/21/17 17:45 04/21/17 20:00 <Susan Hodges - Last Filed: 04/23/17 21:03> Medical Decision Making - Medical Decision Making 04/21/17 18:54 Pt presents to the ED complaining of a 2 day history of nausea, vomiting and profuse watery diarrhea and diffuse abdominal pain. Most likely viral gastroenteritis, but dfferential includes ectopic , less likely biliary disease. Will check labs and give IV hydration and nausea control, reassess. <Susan Hodges - Last Filed: 04/23/17 21:03> *DC/Admit/Observation/Transfer - Attestations Scribe Attestion: 04/21/17 17:23 Documentation prepared by Kaveh Zendejas, acting as medical care evaluation specialist for Susan Hodges MD. <Kaveh Zendejas - Last Filed: 04/21/17 17:55> <Susan Hodges - Last Filed: 04/23/17 21:03> Diagnosis at time of Disposition: Abdominal pain Qualifiers: Abdominal location: generalized Qualified Code(s): R10.84 - Generalized abdominal pain Diarrhea Qualifiers: Diarrhea type: unspecified type Qualified Code(s): R19.7 - Diarrhea, unspecified - Discharge Dispostion Disposition: HOME Condition at time of disposition: Good - Referrals Referrals: Juan Hernandez MD [Primary Care Provider] - - Patient Instructions Printed Discharge Instructions: Diarrhea, DI for Abdominal Pain-Adult
[2017-04-21] MEDS ORDERED: ONDANSETRON 4 MG/2 ML VIAL IVPUSH ONE (17:56)
[2017-04-21] MEDS ORDERED: SODIUM CHLORIDE 1,000 ML IV STA ×2 (17:56→20:59)
[2017-04-21] MEDS ORDERED: ONDANSETRON 4 MG/2 ML VIAL ONE (18:18)
[2017-04-21 18:44] LABS: MCH 28.6 pg (25.7-33.7); MCHC 33.2 g/dl (32.0-36.0); MEAN CELL VOLUME 86.4 fl (80-96); MEAN PLT VOLUME 9.7 fl (7.5-11.1); PLATELET COUNT 210 K/MM3 (134-434); RDW 14.6 % (11.6-15.6); WHITE BLOOD COUNT 2.9 K/mm3 (4.0-10.0)
[2017-04-21 19:37] LABS: PLATELET ESTIMATE ADEQUATE (NORMAL); TOTAL CELLS COUNTED 100
[2017-04-21 20:51] LABS: ALBUMIN 3.4 g/dl (3.4-5.0); ANION GAP 8 (8-16); BILIRUBIN,TOTAL 0.3 mg/dL (0.2-1.0); CALCIUM 7.8 mg/dL (8.5-10.1); CO2 27 mmol/L (21-32); CREATININE 0.6 mg/dL (0.55-1.02); GLUCOSE,RANDOM 84 mg/dL (74-106); SGOT/AST 16 U/L (15-37); SGPT/ALT 22 U/L (12-78); TOT PROT 6.3 g/dl (6.4-8.2)
[2017-04-21 20:52] LABS: ALK PHOS 42 U/L (45-117)
[2017-04-21] MEDS ORDERED: POTASSIUM CHLORIDE TABS 20 MEQ TABLET.ER (FP) PO ONE ×2 (20:56→21:04)
[2017-04-21] MEDS ORDERED: KETOROLAC TROMETHAMINE 30 MG/1 ML VIAL IVPUSH ONE (20:59)
--- NOTE | 2017-04-21 21:00 | PDOC ---
*Physical Exam - Vital Signs Last Vital Signs Temp Pulse Resp BP Pulse Ox 98.0 F 87 17 110/67 99 04/21/17 16:59 04/21/17 16:59 04/21/17 16:59 04/21/17 16:59 04/21/17 16:59 ED Treatment Course - LABORATORY CBC & Chemistry Diagram: 04/21/17 17:45 04/21/17 20:00 - ADDITIONAL ORDERS Additional order review: Laboratory Results 04/21/17 04/21/17 04/21/17 20:20 20:00 20:00 Sodium 139 Potassium 3.4 L Chloride 104 Carbon Dioxide 27 Anion Gap 8 BUN 9 D Creatinine 0.6 Creat Clearance w eGFR > 60 Random Glucose 84 Calcium 7.8 L Total Bilirubin 0.3 AST 16 D ALT 22 Alkaline Phosphatase 42 L D Total Protein 6.3 L Albumin 3.4 Serum , Qual Negative Urine HCG, Qual Negative 04/21/17 04/21/17 17:49 17:45 Sodium Cancelled Potassium Cancelled Chloride Cancelled Carbon Dioxide Cancelled Anion Gap Cancelled BUN Cancelled Creatinine Cancelled Creat Clearance w eGFR Cancelled Random Glucose Cancelled Calcium Cancelled Total Bilirubin Cancelled AST Cancelled ALT Cancelled Alkaline Phosphatase Cancelled Total Protein Cancelled Albumin Cancelled Serum , Qual Cancelled Urine HCG, Qual 04/21/17 17:45 RBC 4.55 D MCV 86.4 MCHC 33.2 RDW 14.6 D MPV 9.7 Neutrophils % Y Lymphocytes % Y - Medications Given in the ED: ED Medications Discontinued Medications Generic Name Dose Route Start Last Admin Trade Name Freq PRN Reason Stop Dose Admin Sodium Chloride 1,000 mls @ 1,000 mls/hr 04/21/17 17:56 04/21/17 18:14 Normal Saline - IV 04/21/17 18:55 1,000 mls/hr ASDIR STA Administration Ondansetron HCl 4 mg 04/21/17 17:56 04/21/17 18:21 Zofran Injection IVPUSH 04/21/17 17:57 4 mg ONCE ONE Administration *DC/Admit/Observation/Transfer Diagnosis at time of Disposition: Abdominal pain Qualifiers: Abdominal location: generalized Qualified Code(s): R10.84 - Generalized abdominal pain Diarrhea Qualifiers: Diarrhea type: unspecified type Qualified Code(s): R19.7 - Diarrhea, unspecified - Discharge Dispostion Disposition: HOME Condition at time of disposition: Stable Admit: No - Referrals Referrals: Juan Hernandez MD [Primary Care Provider] - - Patient Instructions Printed Discharge Instructions: Diarrhea, DI for Abdominal Pain-Adult - Post Discharge Activity
[2017-04-21] MEDS ORDERED: KETOROLAC TROMETHAMINE 30 MG/1 ML VIAL ONE (21:04)
[2017-04-21 22:35] VITALS: BP 128/66; PULSE 60
== END 2017-04-21 22:34 | disposition home or self-care (01) ==
LOC: JER 16:52 → SUPCPDRO 16:52 → JER 22:34
PROC: 3E0333Z Introduction of Anti-inflammatory into Peripheral Vein, Percutaneous Approach (ICD-10-PCS; principal; 2017-04-21)
PROC: 3E033GC Introduction of Other Therapeutic Substance into Peripheral Vein, Percutaneous Approach (ICD-10-PCS; 2017-04-21)
DX: K52.9 Noninfective gastroenteritis and colitis, unspecified (principal); E03.9 Hypothyroidism, unspecified
CPT/HCPCS: 36415; 80053; 84703; 85025; 99282-25

== ENCOUNTER 2017-04-22 17:24 | Emergency (ER) | payer OTHER ==
[2017-04-22 17:33] VITALS: BMI 21.6
[2017-04-22 17:50] VITALS: TEMP 98.1
--- NOTE | 2017-04-22 20:31 | PDOC ---
History of Present Illness - General History Source: Patient Exam Limitations: No Limitations - History of Present Illness Initial Comments: 04/22/17 21:01 The patient is a 31 year old female with significant past medical history of hypothyroidism who presents to the ED for worsening abdominal pain, nausea, vomiting and diarrhea. Patient was seen here yesterday for abdominal pain, nausea, vomiting and diarrhea, where she was treated with IV fluids and discharge. States her daughter is also ill with a viral illness for the last 2 days. Patient returns again for worsening symptoms. States her abdominal cramping and diarrhea has gotten worse. She also reports decreased appetite. Denies recent travel. Denies fever, chills, or diaphoresis. The patient denies cough, SOB, chest pain, and palpitations. The patient denies dysuria, hematuria, urgency, and frequency. Allergies: penicillin Social History: No alcohol, tobacco, or drug use reported. Past Surgical History: cholecystectomy PCP: Dr. Juan Hernandez <Layla Van - Last Filed: 04/22/17 21:01> - General History Source: Patient <Hardik Burt - Last Filed: 04/23/17 00:08> - General Chief Complaint: Vomiting/Diarrhea Stated Complaint: PAIN, ACUTE Time Seen by Provider: 04/22/17 20:31 Past History <Layla Van - Last Filed: 04/22/17 21:01> - Past Medical History Anemia: Yes Asthma: No Cancer: No Cardiac Disorders: No CVA: No COPD: No CHF: No Dementia: No Diabetes: No GI Disorders: No Disorders: No HTN: No Hypercholesterolemia: No Liver Disease: No Seizures: No Thyroid Disease: Yes (hypo) - Surgical History Cholecystectomy: Yes Orthopedic Surgery: No - Psycho/Social/Smoking Cessation Hx Anxiety: No Suicidal Ideation: No Smoking Status: No Smoking History: Never smoked Have you smoked in the past 12 months: No Number of Cigarettes Smoked Daily: 0 Hx Alcohol Use: No Drug/Substance Use Hx: No Substance Use Type: None Hx Substance Use Treatment: No <Hardik Burt - Last Filed: 04/23/17 00:08> - Past Medical History Allergies/Adverse Reactions: Allergies Allergy/AdvReac Type Severity Reaction Status Date / Time Penicillins Allergy Verified 04/22/17 17:32 Home Medications: Ambulatory Orders Levothyroxine [Synthroid -] 50 mcg PO DAILY 10/18/16 Sulfamethoxazole/Trimethoprim [Bactrim Ds -] 1 tab PO BID 04/21/17 Levofloxacin [Levaquin -] 500 mg PO DAILY #7 tablet 04/23/17 Metronidazole [Flagyl] 500 mg PO BID #14 tablet 04/23/17 Review of Systems - Review of Systems Able to Perform ROS?: Yes Comments:: 04/22/17 21:02 CONSTITUTIONAL: Absent: fever, no chills, no fatigue EYES: Absent: visual changes ENT: Absent: ear pain, no sore throat CARDIOVASCULAR: Absent: chest pain, no palpitations RESPIRATORY: Absent: cough, no SOB GI: +abdominal pain, nausea, vomiting, diarrhea Absent: abdominal distension, constipation, melena, hematochezia GENITOURINARY: Absent: dysuria, no frequency, no hematuria MUSCULOSKELETAL: Absent: back pain, no arthralgia, no myalgia SKIN: Absent: rash NEURO: Absent: headache <Layla Van - Last Filed: 04/22/17 21:01> *Physical Exam - Vital Signs Last Vital Signs Temp Pulse Resp BP Pulse Ox 98.1 F 74 20 106/65 100 04/22/17 17:26 04/22/17 17:26 04/22/17 17:26 04/22/17 17:26 04/22/17 17:26 - Physical Exam Comments: 04/22/17 21:02 GENERAL: Well-appearing, well-nourished. Mild distress. HEENT: Normocephalic, atraumatic. PERRL, EOM intact. CARDIOVASCULAR: Normal S1, S2. Regular rate and rhythm. PULMONARY: Clear to auscultation bilaterally. ABDOMEN: Soft. Mild diffuse lower abdominal tenderness. Non-distended. No rebound or guarding. No organomegaly. Normoactive bowel sounds. EXTREMITIES: Normal ROM in all four extremities. No gross deformities. SKIN: Warm, dry. No rash NEUROLOGICAL: No focal neurological deficits. <Layla Van - Last Filed: 04/22/17 21:01> - Vital Signs Last Vital Signs Temp Pulse Resp BP Pulse Ox 98.1 F 74 20 106/65 100 04/22/17 17:26 04/22/17 17:26 04/22/17 17:26 04/22/17 17:26 04/22/17 17:26 <Hardik Burt - Last Filed: 04/23/17 00:08> ED Treatment Course - LABORATORY CBC & Chemistry Diagram: 04/22/17 22:05 04/22/17 22:05 <Hardik Burt - Last Filed: 04/23/17 00:08> Medical Decision Making - Medical Decision Making 04/23/17 00:05 Dr. Burt: The scribe's documentation has been prepared under my direction and personally reviewed by me in its entirery. I confirm that the note above accurately reflects all work, treatment, procedures, and medical decision making performed by me. <Hardik Burt - Last Filed: 04/23/17 00:08> *DC/Admit/Observation/Transfer - Attestations Scribe Attestion: 04/22/17 21:02 Documentation prepared by Layla Van, acting as medical laboratory technician for Hardik Burt DO. <Layla Van - Last Filed: 04/22/17 21:01> - Discharge Dispostion Admit: No <Hardik Burt - Last Filed: 04/23/17 00:08> Diagnosis at time of Disposition: Colitis Diarrhea Qualifiers: Diarrhea type: unspecified type Qualified Code(s): R19.7 - Diarrhea, unspecified - Discharge Dispostion Disposition: HOME Condition at time of disposition: Improved - Prescriptions Prescriptions: Metronidazole [Flagyl] 500 mg PO BID #14 tablet Levofloxacin [Levaquin -] 500 mg PO DAILY #7 tablet - Referrals Referrals: Juan Hernandez MD [Primary Care Provider] - - Patient Instructions Printed Discharge Instructions: DI for Colitis, Diarrhea Additional Instructions: Please follow up with your doctor if symptoms don't improve with antibiotics. Drink plenty of fluids. Avoid alcohol when taking Flagyl. Return if any problems.
[2017-04-22] MEDS ORDERED: SODIUM CHLORIDE 1,000 ML IV STA (20:32)
[2017-04-22] MEDS ORDERED: KETOROLAC TROMETHAMINE 30 MG/1 ML VIAL IVPUSH ONE (20:32)
[2017-04-22] MEDS ORDERED: METRONIDAZOLE 500 MG PREMIXED 100 ML IVPB ONE ×2 (20:32→22:26)
[2017-04-22] MEDS ORDERED: LEVOFLOXACIN 500 MG IVPB 100 ML IVPB ONE ×2 (20:32→22:26)
[2017-04-22 22:15] LABS: BASOPHIL 0.6 % (0-2.0); EOSINOPHIL 0.9 % (0-4.5); MCH 27.8 pg (25.7-33.7); MCHC 33.6 g/dl (32.0-36.0); MEAN CELL VOLUME 82.8 fl (80-96); MEAN PLT VOLUME 9.3 fl (7.5-11.1); NEUTROPHILS 30.4 % (42.8-82.8); PLATELET COUNT 205 K/MM3 (134-434); RDW 14.6 % (11.6-15.6); WHITE BLOOD COUNT 2.6 K/mm3 (4.0-10.0)
[2017-04-22] MEDS ORDERED: KETOROLAC TROMETHAMINE 30 MG/1 ML VIAL ONE (22:26)
[2017-04-22 22:55] LABS: URINE APPEARANCE CLEAR; URINE BILIRUBIN NEGATIVE (NEGATIVE); URINE BLOOD 1+ (NEGATIVE); URINE COLOR STRAW; URINE GLUCOSE (UA) NEGATIVE (NEGATIVE); URINE KETONE NEGATIVE (NEGATIVE); URINE LEUK ESTERASE NEGATIVE (NEGATIVE); URINE NITRITE NEGATIVE (NEGATIVE); URINE PROTEIN NEGATIVE (NEGATIVE); URINE UROBILINOGEN NEGATIVE mg/dL (0.2-1.0)
[2017-04-22 23:01] LABS: URINE BACTERIA RARE /hpf (NONE SEEN); URINE RBC 1 /hpf (0-3); URINE WBC <1 /hpf (3-5)
[2017-04-22 23:03] LABS: ALBUMIN 3.6 g/dl (3.4-5.0); AMYLASE 35 U/L (25-115); ANION GAP 8 (8-16); CO2 25 mmol/L (21-32); CREATININE 0.6 mg/dL (0.55-1.02); GLUCOSE,RANDOM 89 mg/dL (74-106); MAGNESIUM 2.1 mg/dL (1.8-2.4); SGOT/AST 23 U/L (15-37); SGPT/ALT 32 U/L (12-78)
[2017-04-22 23:05] LABS: ALK PHOS 52 U/L (45-117); BILIRUBIN,TOTAL 0.4 mg/dL (0.2-1.0); TOT PROT 6.8 g/dl (6.4-8.2)
[2017-04-23 00:19] VITALS: BP 104/68; PULSE 63
== END 2017-04-23 00:19 | disposition home or self-care (01) ==
LOC: JER 17:24
PROC: 3E03329 Introduction of Other Anti-infective into Peripheral Vein, Percutaneous Approach (ICD-10-PCS; principal; 2017-04-22)
PROC: 3E05329 Introduction of Other Anti-infective into Peripheral Artery, Percutaneous Approach (ICD-10-PCS; 2017-04-22)
PROC: 3E0333Z Introduction of Anti-inflammatory into Peripheral Vein, Percutaneous Approach (ICD-10-PCS; 2017-04-22)
DX: K52.9 Noninfective gastroenteritis and colitis, unspecified (principal); E03.9 Hypothyroidism, unspecified
CPT/HCPCS: 36415; 80053; 81003; 81015; 82150; 83690; 83735; 84703; 85025; 87040; 87086; 99282-25

== ENCOUNTER 2018-10-03 15:37 | Emergency (ER) | payer OTHER ==
[2018-10-03 16:11] VITALS: TEMP 98.1; BMI 26.7
--- NOTE | 2018-10-03 17:26 | PDOC ---
History of Present Illness - General Chief Complaint: Pain Stated Complaint: CHEST AND ABD PAIN History Source: Patient Exam Limitations: No Limitations - History of Present Illness Initial Comments: 10/03/18 17:14 33 yo F with a hx of hypothyroidism and cholecystectomy presents to the emergency department with epigastric pain that radiates to the LUQ, left chest wall, and left shoulder. Per the patient, she has had this pain for a week with acute sudden worsening since 12 pm. The pain is described as sharp, 10/10, with aggravation with deep breathing and movement of the torso, without relief with seltzer. Per the patient, she started having pain radiate to her left chest wall /shoulder beginning today that felt like a tightness, worsening with movement and deep breaths and exertion, and has complete resolution of pain when at rest and still. The patient had an ultrasound of the RUQ which showed hepatic enlargement and was ordered an abdominal pelvis CT which has not been done yet. Endorses nausea earlier. Denies the following: fever, chills, SOB, vomiting, ears/nose/throat pain, headaches, abdominal pain, dysuria, hematuria, diarrhea, and leg pain/swelling. Shx: Cholecystectomy 2015 Meds: synthroid Allergies: PCN Social: Denies tobacco, alcohol, and substance abuse. Past History - Past Medical History Allergies/Adverse Reactions: Allergies Allergy/AdvReac Type Severity Reaction Status Date / Time Penicillins Allergy Verified 10/03/18 16:11 Home Medications: Ambulatory Orders Levothyroxine [Synthroid -] 50 mcg PO DAILY 10/18/16 Sulfamethoxazole/Trimethoprim [Bactrim Ds -] 1 tab PO BID 04/21/17 levoFLOXacin [Levaquin -] 500 mg PO DAILY #7 tablet 04/23/17 metroNIDAZOLE [Flagyl] 500 mg PO BID #14 tablet 04/23/17 Famotidine [Pepcid] 20 mg PO BID #14 tablet 10/03/18 Anemia: Yes Asthma: No Cancer: No Cardiac Disorders: No CVA: No COPD: No CHF: No Dementia: No Diabetes: No GI Disorders: No Disorders: No HTN: No Hypercholesterolemia: No Liver Disease: No (enlarged liver) Seizures: No Thyroid Disease: Yes (hypo) - Surgical History Cholecystectomy: Yes Orthopedic Surgery: No - Suicide/Smoking/Psychosocial Hx Smoking Status: No Smoking History: Never smoked Have you smoked in the past 12 months: No Number of Cigarettes Smoked Daily: 0 Hx Alcohol Use: No Drug/Substance Use Hx: No Substance Use Type: None Hx Substance Use Treatment: No Review of Systems - Review of Systems Able to Perform ROS?: Yes Is the patient limited Thai proficient: No Constitutional: No: Chills, Diaphoresis, Fever, Weakness HEENTM: No: Recent change in vision, Ear Pain, Nose Pain, Nose Congestion, Throat Pain, Mouth Pain Respiratory: No: Cough, Shortness of Breath, SOB with Exertion Cardiac (ROS): Yes: Chest Pain. No: Lightheadedness, Palpitations, Syncope, Chest Tightness ABD/GI: No: Constipated, Diarrhea, Nausea, Poor Appetite, Poor Fluid Intake, Rectal Bleeding, Vomiting, Tarry Stools : No: Burning, Dysuria, Hematuria, Urgency Musculoskeletal: Yes: Joint Pain (left shoulder). No: Back Pain, Neck Pain Integumentary: No: Bruising, Dryness, Erythema, Rash Neurological: No: Headache, Numbness, Tingling, Tremors, Ataxia, Dizziness Psychiatric: No: Change in Appetite Endocrine: No: Unexplained Weight Gain Hematologic/Lymphatic: No: Anemia *Physical Exam - Vital Signs Last Vital Signs Temp Pulse Resp BP Pulse Ox 98.1 F 77 18 129/66 99 10/03/18 16:08 10/03/18 16:08 10/03/18 16:08 10/03/18 16:08 10/03/18 16:08 - Physical Exam General Appearance: Yes: Nourished, Appropriately Dressed. No: Apparent Distress, Intoxicated HEENT: positive: EOMI, YRIS, Normal ENT Inspection, Normal Voice, Symmetrical, TMs Normal, Pharynx Normal, Hearing Grossly Normal. negative: Pale Conjunctivae , Scleral Icterus (R), Scleral Icterus (L), Muffled/Hoarse voice, Pharyngeal Erythema, Tonsillar Exudate, Tonsillar Erythema, Nasal Congestion, Rhinorrhea, Excessive drooling Neck: positive: Trachea midline, Supple. negative: Tender, Lymphadenopathy (R) , Lymphadenopathy (L), Tender lateral, Tender midline Respiratory/Chest: positive: Chest Tender (left chest wall with reproducible pain), Lungs Clear, Normal Breath Sounds. negative: Respiratory Distress, Crackles, Rales, Rhonchi, Stridor, Wheezing Cardiovascular: positive: Regular Rhythm, Regular Rate, S1, S2. negative: Systolic Murmur Gastrointestinal/Abdominal: positive: Normal Bowel Sounds, Tender (epigastric, LUQ, and RUQ), Flat, Soft. negative: Guarding, Hernia Lymphatic: negative: Adenopathy Musculoskeletal: positive: Normal Inspection. negative: CVA Tenderness, Vertebral Tenderness Extremity: positive: Normal Capillary Refill, Normal Inspection, Normal Range of Motion. negative: Tender Integumentary: positive: Normal Color, Dry, Warm Neurologic: positive: ophthalmic tech II-XII NML intact, Fully Oriented, Alert, Normal Mood/ Affect, Normal Response, Motor Strength 5/5. negative: EOM Palsy, Facial Droop , Sensory Deficit Moderate Sedation - Procedure Monitoring Vital Signs: Procedure Monitoring Vital Signs Temperature 98.1 F 10/03/18 16:08 Pulse Rate 77 10/03/18 16:08 Respiratory Rate 18 10/03/18 16:08 Blood Pressure 129/66 10/03/18 16:08 O2 Sat by Pulse Oximetry (%) 99 10/03/18 16:08 Heart Score/ECG Review - ECG Intrepretation Comment:: ventricular rate: 78 bpm, QRS is 90 ms, MO is 150 ms, QTc is 433 ms. Normal sinus rhythm without ST elevations or depressions. ED Treatment Course - LABORATORY CBC & Chemistry Diagram: 10/03/18 18:18 10/03/18 18:18 Medical Decision Making - Medical Decision Making 33 yo F with a hx of hypothyroidism and cholecystectomy presents to the emergency department with epigastric pain that radiates to the LUQ, left chest wall, and left shoulder. Initial vitals: Initial Vital Signs Temp Pulse Resp BP Pulse Ox 98.1 F 77 18 129/66 99 10/03/18 16:08 10/03/18 16:08 10/03/18 16:08 10/03/18 16:08 10/03/18 16:08 Work up: ddx: costochondritis vs ACS vs pNA vs gastritis vs GERD vs gastric/duodenal ulcer vs pleuritis vs pericarditis vs pancreatitis vs UTI vs nephrolithiasis Laboratory Tests 10/03/18 10/03/18 10/03/18 17:51 18:15 18:18 WBC 5.8 RBC 4.57 Hgb 13.9 Hct 39.8 MCV 87.0 MCH 30.3 MCHC 34.9 RDW 13.6 Plt Count 306 D MPV 9.5 Absolute Neuts (auto) 3.2 Neutrophils % 54.3 D Lymphocytes % 35.5 D Monocytes % 8.4 Eosinophils % 1.2 Basophils % 0.6 Nucleated RBC % 0 Sodium Potassium Chloride Carbon Dioxide Anion Gap BUN Creatinine Creat Clearance w eGFR Random Glucose Calcium Total Bilirubin AST ALT Alkaline Phosphatase Creatine Kinase Troponin I Total Protein Albumin Lipase Serum , Qual Negative Urine Color Yellow Urine Appearance Clear Urine pH 5.0 Ur Specific [place] 1.024 Urine Protein Negative Urine Glucose (UA) Negative Urine Ketones Trace H Urine Blood Negative Urine Nitrite Negative Urine Bilirubin Negative Urine Urobilinogen Negative Ur Leukocyte Esterase Negative 10/03/18 18:18 WBC RBC Hgb Hct MCV MCH MCHC RDW Plt Count MPV Absolute Neuts (auto) Neutrophils % Lymphocytes % Monocytes % Eosinophils % Basophils % Nucleated RBC % Sodium 141 Potassium 3.9 Chloride 106 Carbon Dioxide 29 Anion Gap 6 L BUN 17 Creatinine 0.8 Creat Clearance w eGFR > 60 Random Glucose 89 Calcium 8.6 Total Bilirubin 0.4 AST 10 L ALT 20 Alkaline Phosphatase 75 Creatine Kinase 104 Troponin I < 0.02 Total Protein 7.6 Albumin 4.2 Lipase 134 Serum , Qual Urine Color Urine Appearance Urine pH Ur Specific [place] Urine Protein Urine Glucose (UA) Urine Ketones Urine Blood Urine Nitrite Urine Bilirubin Urine Urobilinogen Ur Leukocyte Esterase CT abdomen and pelvis showed fatty liver without obstruction seen with none of the following: diverticulitis, appendicitis, colitis, free fluid, free air, and abscess collection. labs within normal limits. on reassessment, patient's symptoms worsen when she eats spicy and acidic food and calm down when hours after eating. onset of pain occurs right after eating. patient will be referred to Dr. Cuevas for follow up care and management. patient received pepcid and tylenol. Dispo: Discharge *DC/Admit/Observation/Transfer Diagnosis at time of Disposition: Abdominal pain Qualifiers: Abdominal location: unspecified location Qualified Code(s): R10.9 - Unspecified abdominal pain - Discharge Dispostion Disposition: HOME Decision to Admit order: No - Prescriptions Prescriptions: Famotidine [Pepcid] 20 mg PO BID #14 tablet - Referrals Referrals: Juan Hernandez MD [Primary Care Provider] - Valentin Cuevas MD [Staff Physician] - - Patient Instructions Printed Discharge Instructions: [place] Diet, DI for Gastritis Additional Instructions: you were seen in the emergency department for your pain. please take the medication as prescribed. please follow up with Dr. Cuevas within 3 days after discharge for follow up care and management. your care is not complete until this occurs. In addition, please return to the emergency department if you have worsening symptoms or new concerning symptoms such as fever, chills, intractable vomiting, and chest pain. thank you. - Post Discharge Activity
--- NOTE | 2018-10-03 17:41 | PDOC ---
Attending Attestation - [facility] HPI: 10/03/18 17:43 The patient is a 33 year old female with a significant past medical history of hypothyroidism who presents to the ED for one week of epigastric pain. Patient reports one week of epigastric pain with radiation to the right upper quadrant and left upper quadrant. She states her epigastric pain worsened today, moreso in the left upper quadrant. Patient also states her pain radiated to her left chest wall and left shoulder around 12pm earlier today. She describes her left chest wall and left shoulder pain as tightness and slight weakness. Patient also reports nausea. Patient states she recently had an US done, ordered by Dr. Hernandez, that showed an enlarged liver. Patient is scheduled for an abdominal CT on Thursday (). Denies diaphoresis. Denies fever or chills. Denies vomiting or diarrhea. Denies any other symptoms. - Physicial Exam PE: 10/03/18 18:10 GENERAL: Well developed, well nourished. Awake and alert. No acute distress. HEENT: Normocephalic, atraumatic. PERRLA, EOMI. No conjunctival pallor. Sclera are non- icteric. Moist mucous membranes. Oropharynx is clear. NECK: Supple. Full ROM. No JVD. Carotid pulses 2+ and symmetric, without bruits. No thyromegaly. No lymphadenopathy. CARDIOVASCULAR: Regular rate and rhythm. No murmurs, rubs, or gallops. Distal pulses are 2+ and symmetric. PULMONARY: No evidence of respiratory distress. Lungs clear to auscultation bilaterally. No wheezing, rales or rhonchi. ABDOMINAL: Soft. Non-tender. Non-distended. No rebound or guarding. No organomegaly. Normoactive bowel sounds. MUSCULOSKELETAL Normal range of motion at all joints. No bony deformities or tenderness. No CVA tenderness. EXTREMITIES: No cyanosis. No clubbing. No edema. No calf tenderness. SKIN: Warm and dry. Normal capillary refill. No rashes. No jaundice. NEUROLOGICAL: Alert, awake, appropriate. Cranial nerves 2-12 intact. No deficits to light touch and temperature in face, upper extremities and lower extremities. No motor deficits in the in face, upper extremities and lower extremities. Normoreflexic in the upper and lower extremities. Normal speech. Toes are down- going bilaterally. Gait is normal without ataxia. PSYCHIATRIC: Cooperative. Good eye contact. Appropriate mood and affect. <Michelle Saldana - Last Filed: 10/03/18 18:13> - Resident Resident Name: Jacinto Correia - ED Attending Attestation I have performed the following: I have examined & evaluated the patient, The case was reviewed & discussed with the resident, I agree w/resident's findings & plan, Exceptions are as noted - HPI HPI: 10/03/18 17:37 1 week of epigastric pain radiating to RUQ and LUQ. Today pain worsened now radiates to left shoulder She had an abd ultrasound as outpt and an enlarged liver was found Seen by Dr Gallo and he ordered a ct scan of abd/pel - Medical Decision Making 10/03/18 21:21 33 yo female has c/o epigastric discomfort. denies vomiting,fever,diarrhea or chest pain labs unremarkable stable VS ct scan abd/pel: fatty liver, no appendicitis,no diverticulitis,no colitis,no sbo, no fluid collection,no abscess pt d/c to gollow up with Dr Cuevas who she has seen before. Diff Diag includes GERD,,acid reflux,peptic ulcer 10/03/18 21:29 <Yesica Boo - Last Filed: 10/03/18 21:30> Attestations - Attestations 10/03/18 17:43 Documentation prepared by Michelle Saldana, acting as medical service technician for Yesica Boo MD. <Michelle Saldana - Last Filed: 10/03/18 18:13>
[2018-10-03] MEDS ORDERED: FAMOTIDINE 20 MG/50 ML IVPB 20 MG/50 ML MG IVPB ONE ×2 (18:22→18:31)
[2018-10-03] MEDS ORDERED: ACETAMINOPHEN 1000 MG/100 ML VIAL (NON FORMULARY) IVPB ONE (18:22)
[2018-10-03] MEDS ORDERED: MAG HYDROX/AL HYDROX/SIMETH 30 ML UNIT-DOSE CUP PO ONE (18:22)
[2018-10-03 18:27] LABS: BASO % 0.6 % (0-2.0); EOS % 1.2 % (0-4.5); HEMATOCRIT 39.8 % (32.4-45.2); HEMOGLOBIN 13.9 GM/dL (10.7-15.3); LYMPH % 35.5 % (8-40); MCH 30.3 pg (25.7-33.7); MCHC 34.9 g/dl (32.0-36.0); MEAN PLT VOLUME 9.5 fl (7.5-11.1); MONO % 8.4 % (3.8-10.2); NEUT % 54.3 % (42.8-82.8); PLATELET COUNT 306 K/MM3 (134-434); RBC 4.57 M/mm3 (3.60-5.2); RDW 13.6 % (11.6-15.6); WHITE BLOOD COUNT 5.8 K/mm3 (4.0-10.0)
[2018-10-03] MEDS ORDERED: ACETAMINOPHEN INJECTION 100 ML IVPB ONE (18:30)
[2018-10-03] MEDS ORDERED: MAG HYDROX/AL HYDROX/SIMETH 30 ML UNIT-DOSE CUP ONE (18:31)
[2018-10-03 18:33] LABS: URINE APPEARANCE CLEAR; URINE BILIRUBIN NEGATIVE (<2.0 mg/dL); URINE COLOR YELLOW; URINE GLUCOSE (UA) NEGATIVE (NEGATIVE); URINE KETONE TRACE (NEGATIVE); URINE LEUK ESTERASE NEGATIVE (NEGATIVE); URINE NITRITE NEGATIVE (NEGATIVE); URINE PROTEIN NEGATIVE (NEGATIVE); URINE UROBILINOGEN NEGATIVE mg/dL (0.2-1.0)
[2018-10-03 19:03] LABS: ALBUMIN 4.2 g/dl (3.4-5.0); ALK PHOS 75 U/L (45-117); ANION GAP 6 MMOL/L (8-16); BILIRUBIN,TOTAL 0.4 mg/dL (0.2-1); BLOOD UREA NITROGEN 17 mg/dL (7-18); CALCIUM 8.6 mg/dL (8.5-10.1); CHLORIDE 106 mmol/L (98-107); CO2 29 mmol/L (21-32); CREATININE 0.8 mg/dL (0.55-1.3); GLUCOSE,RANDOM 89 mg/dL (74-106); LIPASE 134 U/L (73-393); POTASSIUM 3.9 mmol/L (3.5-5.1); SGOT/AST 10 U/L (15-37); SGPT/ALT 20 U/L (13-61); SODIUM 141 mmol/L (136-145); TOT PROT 7.6 g/dl (6.4-8.2)
[2018-10-03 21:30] VITALS: BP 122/74; PULSE 88
--- NOTE | 2018-10-04 09:53 | EKG ---
Test Reason : Blood Pressure : / mmHG Vent. Rate : 078 BPM Atrial Rate : 078 BPM P-R Int : 150 ms QRS Dur : 090 ms QT Int : 380 ms P-R-T Axes : 075 069 052 degrees QTc Int : 433 ms NORMAL SINUS RHYTHM NORMAL ECG WHEN COMPARED WITH ECG OF 29-DEC-2016 20:19, NO SIGNIFICANT CHANGE WAS FOUND Confirmed by BYRON TELLEZ MD ([id number]) on 10/04/2018 9:53:35 AM Referred By: Confirmed By:BYRON TELLEZ MD
== END 2018-10-03 21:49 | disposition home or self-care (01) ==
LOC: JER 15:37
PROC: 3E033GC Introduction of Other Therapeutic Substance into Peripheral Vein, Percutaneous Approach (ICD-10-PCS; principal; 2018-10-03)
PROC: 3E033NZ Introduction of Analgesics, Hypnotics, Sedatives into Peripheral Vein, Percutaneous Approach (ICD-10-PCS; 2018-10-03)
DX: K29.70 Gastritis, unspecified, without bleeding (principal); E03.9 Hypothyroidism, unspecified; Z90.49 Acquired absence of other specified parts of digestive tract; Z88.0 Allergy status to penicillin
CPT/HCPCS: 36415; 71046-TC-FY; 74177-TC; 80053; 81003; 82550; 83690; 84484; 84703; 85025; 87086; 93005; 93010; 99283-25; J0131

== ENCOUNTER 2018-12-08 09:33 | Day surgery (SDC) | payer OTHER ==
[2018-12-06 18:41] VITALS: BMI 25.8
[2018-12-08] MEDS ORDERED: PROPOFOL 20 ML ONE ×2 (10:49)
[2018-12-08 11:56] VITALS: TEMP 98.4
[2018-12-08 12:08] VITALS: BP 110/60; PULSE 81
--- NOTE | 2018-12-10 17:43 | PATH ---
Surgical Pathology Report Patient Name: PRANEETH EAGLE [facility]. Rec. #: [id number] /Age/Gender: 1985 (Age: 33) / F Account: [id number] Location: [facility] Taken: 12/08/2018 Received: 12/08/2018 Reported: 12/10/2018 Physicians: Kimberly Wolfe M.D. Specimen(s) Received A: BX SECOND PORTION DUODENUM B: BX GASTRIC ANTRUM C: BX GE JUNCTION Clinical History Abdominal pain Postoperative diagnosis: Gastritis Final Diagnosis A. SECOND PORTION DUODENUM, BIOPSY: DUODENUM MUCOSA WITH NO SIGNIFICANT PATHOLOGIC CHANGE. NO HISTOLOGIC EVIDENCE OF CELIAC DISEASE. B. GASTRIC ANTRUM, BIOPSY: GASTRIC MUCOSA WITH CHRONIC GASTRITIS. IMMUNOSTAIN FOR H. PYLORI IS NEGATIVE. NEGATIVE FOR INTESTINAL METAPLASIA. C. GE JUNCTION, BIOPSY: GASTROESOPHAGEAL JUNCTIONAL MUCOSA WITH MILD NONSPECIFIC CHRONIC INFLAMMATION. NEGATIVE FOR INTESTINAL METAPLASIA. Electronically Signed Carlos Contreras M.D. Gross Description A. Received in formalin, labeled "biopsy second portion of duodenum" is a garay, irregular portion of soft tissue measuring 0.4 cm. in greatest dimension. The specimen is submitted in toto in one cassette. B. Received in formalin, labeled "biopsy gastric antrum" is a garay, irregular portion of soft tissue measuring 0.4 cm. in greatest dimension. The specimen is submitted in toto in one cassette. C. Received in formalin, labeled "biopsy GE junction" is a garay, irregular portion of soft tissue measuring 0.3 cm. in greatest dimension. The specimen is submitted in toto in one cassette. 12/09/2018 saudi12/09/2018
== END 2018-12-08 12:13 | disposition home or self-care (01) ==
LOC: FASU-ENDO 09:33
PROVIDERS: ATTEND Internal Medicine Gastroenterology
PROC: 0DB58ZX Excision of Esophagus, Via Natural or Artificial Opening Endoscopic, Diagnostic (ICD-10-PCS; 2018-12-08)
PROC: 0DB98ZX Excision of Duodenum, Via Natural or Artificial Opening Endoscopic, Diagnostic (ICD-10-PCS; principal; 2018-12-08 11:17)
PROC: 0DB68ZX Excision of Stomach, Via Natural or Artificial Opening Endoscopic, Diagnostic (ICD-10-PCS; 2018-12-08 11:17)
DX: K29.50 Unspecified chronic gastritis without bleeding (principal); R10.9 Unspecified abdominal pain; K20.9 Esophagitis, unspecified
CPT/HCPCS: 84703; 88305-TC; 88342-TC

== ENCOUNTER 2022-07-26 13:17 | Emergency (ER) | payer OTHER ==
[2022-07-26 13:28] VITALS: BP 94/54; PULSE 71; RESP 16; TEMP 97.7; BMI 25.8
[2022-07-26] MEDS ORDERED: SODIUM CHLORIDE 1,000 ML IV STA (13:48)
[2022-07-26 14:34] LABS: BASO % 0.4 % (0-2.0); EOS % 1.2 % (0-4.5); HEMATOCRIT 44.5 % (32.4-45.2); LYMPH % 29.7 % (8-40); MCH 28.9 pg (25.7-33.7); MCHC 33.7 g/dl (32.0-36.0); MEAN CELL VOLUME 85.9 fl (80-96); MEAN PLT VOLUME 9.2 fl (7.5-11.1); MONO % 7.1 % (3.8-10.2); NEUT % 61.6 % (42.8-82.8); PLATELET COUNT 333 10^3/uL (134-434); RBC 5.18 M/mm3 (3.60-5.2); WHITE BLOOD COUNT 5.8 K/mm3 (4.0-10.0)
[2022-07-26 14:50] LABS: BLOOD UREA NITROGEN 15.1 mg/dL (7-18)
[2022-07-26 14:55] LABS: BILIRUBIN,TOTAL 0.4 mg/dL (0.2-1); TOT PROT 7.3 g/dl (6.4-8.2)
[2022-07-26 14:57] LABS: CREATININE 0.8 mg/dL (0.55-1.3)
== END 2022-07-26 15:22 | disposition home or self-care (01) ==
LOC: JER 13:17
DX: R55 Syncope and collapse (principal)
CPT/HCPCS: 36415; 80053; 84703; 85025; 93005; 93010; 99284-25

== ENCOUNTER 2023-04-22 16:12 | Emergency (ER) | payer OTHER ==
[2023-04-22 16:19] VITALS: RESP 18; BMI 28.3
[2023-04-22] MEDS ORDERED: FAMOTIDINE 20 MG/50 ML IVPB 20 MG/50 ML MG IVPB ONE ×2 (16:59→17:22)
[2023-04-22] MEDS ORDERED: MAG HYDROX/AL HYDROX/SIMETH 30 ML UNIT-DOSE CUP PO ONE (16:59)
[2023-04-22] MEDS ORDERED: SODIUM CHLORIDE 1,000 ML IV STA (16:59)
[2023-04-22] MEDS ORDERED: ACETAMINOPHEN 1000 MG/100 ML BAG IVPB ONE (16:59)
[2023-04-22 17:22] LABS: BASO % 0.8 % (0-2.0); EOS % 1.5 % (0-4.5); HEMATOCRIT 38.3 % (32.4-45.2); LYMPH % 38.5 % (8-40); MCH 29.8 pg (25.7-33.7); MEAN CELL VOLUME 87.7 fl (80-96); MEAN PLT VOLUME 9.3 fl (7.5-11.1); MONO % 13.8 % (3.8-10.2); NEUT % 45.4 % (42.8-82.8); PLATELET COUNT 286 10^3/uL (134-434); RBC 4.37 M/mm3 (3.60-5.2); RDW 13.1 % (11.6-15.6); WHITE BLOOD COUNT 4.3 K/mm3 (4.0-10.0)
[2023-04-22] MEDS ORDERED: ACETAMINOPHEN INJECTION 100 ML IVPB ONE (17:22)
[2023-04-22] MEDS ORDERED: MAG HYDROX/AL HYDROX/SIMETH 30 ML UNIT-DOSE CUP ONE (17:22)
[2023-04-22 17:47] LABS: CALCIUM 8.7 mg/dL (8.5-10.1); POTASSIUM 3.9 mmol/L (3.5-5.1)
[2023-04-22 17:48] LABS: ALBUMIN 3.7 g/dl (3.4-5.0); BLOOD UREA NITROGEN 13.8 mg/dL (7-18)
[2023-04-22 17:52] LABS: CREATININE 0.8 mg/dL (0.55-1.3)
[2023-04-22 17:53] LABS: BILIRUBIN,TOTAL 0.3 mg/dL (0.2-1); TOT PROT 6.9 g/dl (6.4-8.2)
[2023-04-22 17:55] LABS: URINE APPEARANCE CLEAR; URINE BILIRUBIN NEGATIVE (NEGATIVE); URINE COLOR YELLOW; URINE GLUCOSE (UA) NEGATIVE (NEGATIVE); URINE KETONE NEGATIVE (NEGATIVE); URINE LEUK ESTERASE NEGATIVE (NEGATIVE); URINE NITRITE NEGATIVE (NEGATIVE); URINE PROTEIN NEGATIVE (NEGATIVE); URINE UROBILINOGEN 0.2 mg/dL (0.2-1.0)
[2023-04-22 18:54] VITALS: BP 114/72; PULSE 69; TEMP 97.8
[2023-04-22 21:26] LABS: BASO % 0.9 % (0-2.0); EOS % 1.6 % (0-4.5); HEMATOCRIT 38.5 % (32.4-45.2); HEMOGLOBIN 12.9 GM/dL (10.7-15.3); LYMPH % 43.4 % (8-40); MCH 29.4 pg (25.7-33.7); MCHC 33.6 g/dl (32.0-36.0); MEAN CELL VOLUME 87.4 fl (80-96); MEAN PLT VOLUME 9.4 fl (7.5-11.1); MONO % 12.1 % (3.8-10.2); PLATELET COUNT 278 10^3/uL (134-434); RDW 13.3 % (11.6-15.6); WHITE BLOOD COUNT 4.3 K/mm3 (4.0-10.0)
== END 2023-04-22 23:07 | disposition home or self-care (01) ==
LOC: JER 16:12
PROC: 3E033GC Introduction of Other Therapeutic Substance into Peripheral Vein, Percutaneous Approach (ICD-10-PCS; principal; 2023-04-22)
PROC: 3E033NZ Introduction of Analgesics, Hypnotics, Sedatives into Peripheral Vein, Percutaneous Approach (ICD-10-PCS; 2023-04-22)
DX: R10.13 Epigastric pain (principal); R11.10 Vomiting, unspecified; R19.5 Other fecal abnormalities; K29.70 Gastritis, unspecified, without bleeding; B96.81 Helicobacter pylori [H. pylori] as the cause of diseases classified elsewhere
CPT/HCPCS: 36415; 74177-TC; 80053; 81003; 82272; 83605; 83690; 84703; 85025; 86850; 86900; 86901; 87086; 99285-25; Q9967

== ENCOUNTER 2024-02-02 15:21 | Emergency (ER) | payer OTHER ==
[2024-02-02 15:30] VITALS: BP 102/67; PULSE 68; RESP 20; TEMP 97.6; BMI 26.3
[2024-02-02] MEDS ORDERED: METOCLOPRAMIDE HCL INJECTION 10 MG/2 ML VIAL ONE (16:23)
[2024-02-02 16:24] LABS: BASO % 0.6 % (0-2.0); EOS % 1.1 % (0-4.5); HEMATOCRIT 39.4 % (32.4-45.2); HEMOGLOBIN 13.5 GM/dL (10.7-15.3); LYMPH % 32.3 % (8-40); MCH 29.7 pg (25.7-33.7); MCHC 34.3 g/dl (32.0-36.0); MEAN CELL VOLUME 86.5 fl (80-96); MEAN PLT VOLUME 9.3 fl (7.5-11.1); MONO % 8.8 % (3.8-10.2); NEUT % 57.2 % (42.8-82.8); PLATELET COUNT 352 10^3/uL (134-434); RBC 4.56 M/mm3 (3.60-5.2); RDW 13.5 % (11.6-15.6); WHITE BLOOD COUNT 5.7 K/mm3 (4.0-10.0)
[2024-02-02] MEDS: SODIUM CHLORIDE 0.9% 500 ML INFUS.BAG IV ONE (16:25)
[2024-02-02] MEDS: METOCLOPRAMIDE HCL INJECTION 10 MG/2 ML VIAL IVPUSH ONE (16:26)
[2024-02-02] MEDS ORDERED: ACETAMINOPHEN INJECTION 100 ML IVPB ONE (16:26)
[2024-02-02] MEDS: ACETAMINOPHEN 1000 MG/100 ML BAG IVPB ONE (16:26)
[2024-02-02 16:46] LABS: POTASSIUM 3.9 mmol/L (3.5-5.1)
[2024-02-02 16:48] LABS: CALCIUM 9.1 mg/dL (8.5-10.1)
[2024-02-02 16:49] LABS: ALBUMIN 4.1 g/dl (3.4-5.0); MAGNESIUM 2.4 mg/dL (1.8-2.4)
[2024-02-02 16:52] LABS: CREATININE 0.6 mg/dL (0.55-1.3)
[2024-02-02 16:53] LABS: BILIRUBIN,TOTAL 0.5 mg/dL (0.2-1)
[2024-02-02 16:54] LABS: TOT PROT 7.4 g/dl (6.4-8.2)
[2024-02-02] MEDS ORDERED: KETOROLAC TROMETHAMINE 30 MG/1 ML VIAL ONE (17:21)
[2024-02-02] MEDS: KETOROLAC TROMETHAMINE 30 MG/1 ML VIAL IVPUSH ONE (17:26)
== END 2024-02-02 18:11 | disposition home or self-care (01) ==
LOC: JER 15:21
PROC: 3E033NZ Introduction of Analgesics, Hypnotics, Sedatives into Peripheral Vein, Percutaneous Approach (ICD-10-PCS; principal; 2024-02-02)
PROC: 3E0333Z Introduction of Anti-inflammatory into Peripheral Vein, Percutaneous Approach (ICD-10-PCS; 2024-02-02)
PROC: 3E033GC Introduction of Other Therapeutic Substance into Peripheral Vein, Percutaneous Approach (ICD-10-PCS; 2024-02-02)
DX: G43.109 Migraine with aura, not intractable, without status migrainosus (principal); R42 Dizziness and giddiness
CPT/HCPCS: 36415; 70450-TC; 80053; 83735; 84484; 84703; 85025; 93005; 93010; 99285-25; J0131